=== PATIENT | female | born 1975 ===

== ENCOUNTER 2020-05-02 07:13 | Emergency (ER) | payer BC ==
[2020-05-02] MEDS ORDERED: PANTOPRAZOLE 40 MG/10 ML VIAL IVP STA (07:29)
[2020-05-02] MEDS ORDERED: SODIUM CHLORIDE 0.9% 1,000 ML IV STA (07:29)
--- NOTE | 2020-05-02 07:34 | ED ---
Abdominal Pain HPI - General Chief Complaint: Abdominal Pain Stated Complaint: GI Bleed Time Seen by Provider: 05/02/20 07:26 Source: patient, RN notes reviewed Mode of arrival: ambulatory Limitations: no limitations - History of Present Illness Initial Comments: This is a 45-year-old female history of diverticulitis in the past about obstruction kidney stones abdominal surgeries who presents with complaints of the onset 2 days ago left lower quadrant pain 8/10 in severity and also dull and achy in nature with intermittent episodes of bright red blood per rectum. He states the pain is somewhat localized left lower quadrant has gotten worse since chest today. Just feels very tired she denies any fevers chills or sweats dysuria hematuria. has had nausea with this.No other complaints or modifying factors at this time other than she is on blood thinners for a history of PE MD Complaint: abdominal pain, other - Related Data Home Medications Medication Instructions Recorded Confirmed Pantoprazole Sodium [Protonix] 40 mg PO DAILY 05/02/20 05/02/20 Rivaroxaban [Xarelto] 20 mg PO DAILY 05/02/20 05/02/20 Sertraline [Zoloft] 150 mg PO DAILY 05/02/20 05/02/20 Sucralfate [Carafate] 1 gm PO ACHS PRN 05/02/20 05/02/20 amLODIPine [Norvasc] 2.5 mg PO DAILY 05/02/20 05/02/20 Previous Rx's Medication Instructions Recorded Amoxic-Pot Clav 875-125Mg 1 tab PO Q12HR 1 Days #20 tab 05/02/20 [Augmentin 875-125] HYDROcodone/APAP 5-325MG [Pelzer 1 tab PO Q4HR PRN 3 Days #18 tab 05/02/20 5-325] Allergies Allergy/AdvReac Type Severity Reaction Status Date / Time carbamazepine [From Tegretol] Allergy Unknown Verified 05/02/20 09:29 ketorolac [From Toradol] Allergy Unknown Verified 05/02/20 09:29 lamotrigine [From Lamictal] Allergy Unknown Verified 05/02/20 09:29 prochlorperazine Allergy Unknown Verified 05/02/20 09:29 [From Compazine] Sulfa (Sulfonamide Allergy Unknown Verified 05/02/20 09:29 Antibiotics) Review of Systems ROS Statement: Those systems with pertinent positive or pertinent negative responses have been documented in the HPI. ROS Other: All systems not noted in ROS Statement are negative. Past Medical History Past Medical History: Deep Vein Thrombosis (DVT), Pulmonary Embolus (PE) Additional Past Medical History / Comment(s): endometriosis, diverticulitis, bowel obstruction, kidney stones. MTHFR mutation- high risk to develop blood clots History of Any Multi-Drug Resistant Organisms: MRSA Date of last positivie culture/infection: 2013 MDRO Source:: Bloodstream Past Surgical History: Appendectomy, Section, Cholecystectomy, Hernia Repair, Hysterectomy, Tonsillectomy Additional Past Surgical History / Comment(s): bowel obstruction surgery, brain surgery Past Psychological History: Depression Smoking Status: Never smoker Past Alcohol Use History: None Reported Past Drug Use History: None Reported General Exam - General Exam Comments Initial Comments: this is a well-developed well-nourished awake alert oriented history female Limitations: no limitations General appearance: alert, anxious Head exam: Present: atraumatic, normocephalic, normal inspection Eye exam: Present: normal appearance, PERRL, EOMI. Absent: scleral icterus, conjunctival injection, periorbital swelling ENT exam: Present: normal exam, mucous membranes moist Neck exam: Present: normal inspection. Absent: tenderness, meningismus, lymphadenopathy Respiratory exam: Present: normal lung sounds bilaterally. Absent: respiratory distress, wheezes, rales, rhonchi, stridor Cardiovascular Exam: Present: regular rate, normal rhythm, normal heart sounds. Absent: systolic murmur, diastolic murmur, rubs, gallop, clicks GI/Abdominal exam: Present: soft, tenderness, normal bowel sounds. Absent: distended, guarding, rebound, rigid, bruit, pulsatile mass Extremities exam: Present: normal inspection, full ROM, normal capillary refill. Absent: tenderness, pedal edema, joint swelling, calf tenderness Back exam: Present: normal inspection Neurological exam: Present: alert, oriented X3, CN II-XII intact Psychiatric exam: Present: normal affect, normal mood Skin exam: Present: warm, dry, intact, normal color. Absent: rash Course Vital Signs 05/02/20 05/02/20 07:16 09:16 Temperature 98.4 F 98.4 F Pulse Rate 87 79 Respiratory 16 18 Rate Blood Pressure 135/81 131/89 O2 Sat by Pulse 100 96 Oximetry Medical Decision Making - Medical Decision Making I did a long discussion with the patient regarding the findings. She is feeling better she would prefer to try outpatient antibiotics first. She will be placed on appropriate medication she is a follow-up with her doctor we did discuss return parameters. - Lab Data Result diagrams: 05/02/20 07:38 05/02/20 07:38 Lab Results 05/02/20 05/02/20 05/02/20 Range/Units 07:38 07:38 07:38 WBC 4.6 (3.8-10.6) k/uL RBC 4.86 (3.80-5.40) m/uL Hgb 12.9 (11.4-16.0) gm/dL Hct 39.8 (34.0-46.0) % MCV 81.9 (80.0-100.0) fL MCH 26.6 (25.0-35.0) pg MCHC 32.4 (31.0-37.0) g/dL RDW 13.4 (11.5-15.5) % Plt Count 154 (150-450) k/uL MPV 7.3 Neutrophils % 67 % Lymphocytes % 23 % Monocytes % 6 % Eosinophils % 2 % Basophils % 1 % Neutrophils # 3.1 (1.3-7.7) k/uL Lymphocytes # 1.0 (1.0-4.8) k/uL Monocytes # 0.3 (0-1.0) k/uL Eosinophils # 0.1 (0-0.7) k/uL Basophils # 0.0 (0-0.2) k/uL PT (9.0-12.0) sec INR (<1.2) APTT (22.0-30.0) sec Sodium 137 (137-145) mmol/L Potassium 4.1 (3.5-5.1) mmol/L Chloride 106 (98-107) mmol/L Carbon Dioxide 27 (22-30) mmol/L Anion Gap 4 mmol/L BUN 16 (7-17) mg/dL Creatinine 0.71 (0.52-1.04) mg/dL Est GFR (CKD-EPI)AfAm >90 (>60 ml/min/1.73 sqM) Est GFR (CKD-EPI)NonAf >90 (>60 ml/min/1.73 sqM) Glucose 122 H (74-99) mg/dL Calcium 8.8 (8.4-10.2) mg/dL Total Bilirubin 0.5 (0.2-1.3) mg/dL AST 21 (14-36) U/L ALT 21 (4-34) U/L Alkaline Phosphatase 86 (38-126) U/L Creatine Kinase 58 (30-135) U/L Total Protein 6.4 (6.3-8.2) g/dL Albumin 3.9 (3.5-5.0) g/dL Amylase 53 (30-110) U/L Lipase 190 (23-300) U/L Urine Color Light Yellow Urine Appearance Clear (Clear) Urine pH 5.0 (5.0-8.0) Ur Specific [place] 1.016 (1.001-1.035) Urine Protein Negative (Negative) Urine Glucose (UA) Negative (Negative) Urine Ketones Negative (Negative) Urine Blood Negative (Negative) Urine Nitrite Negative (Negative) Urine Bilirubin Negative (Negative) Urine Urobilinogen <2.0 (<2.0) mg/dL Ur Leukocyte Esterase Negative (Negative) Blood Type Blood Type Confirm Blood Type Recheck Bld Type Recheck Status Antibody Screen Spec Expiration Date 05/02/20 05/02/20 05/02/20 Range/Units 07:38 07:38 08:10 WBC (3.8-10.6) k/uL RBC (3.80-5.40) m/uL Hgb (11.4-16.0) gm/dL Hct (34.0-46.0) % MCV (80.0-100.0) fL MCH (25.0-35.0) pg MCHC (31.0-37.0) g/dL RDW (11.5-15.5) % Plt Count (150-450) k/uL MPV Neutrophils % % Lymphocytes % % Monocytes % % Eosinophils % % Basophils % % Neutrophils # (1.3-7.7) k/uL Lymphocytes # (1.0-4.8) k/uL Monocytes # (0-1.0) k/uL Eosinophils # (0-0.7) k/uL Basophils # (0-0.2) k/uL PT 10.3 (9.0-12.0) sec INR 1.0 (<1.2) APTT 22.6 (22.0-30.0) sec Sodium (137-145) mmol/L Potassium (3.5-5.1) mmol/L Chloride (98-107) mmol/L Carbon Dioxide (22-30) mmol/L Anion Gap mmol/L BUN (7-17) mg/dL Creatinine (0.52-1.04) mg/dL Est GFR (CKD-EPI)AfAm (>60 ml/min/1.73 sqM) Est GFR (CKD-EPI)NonAf (>60 ml/min/1.73 sqM) Glucose (74-99) mg/dL Calcium (8.4-10.2) mg/dL Total Bilirubin (0.2-1.3) mg/dL AST (14-36) U/L ALT (4-34) U/L Alkaline Phosphatase (38-126) U/L Creatine Kinase (30-135) U/L Total Protein (6.3-8.2) g/dL Albumin (3.5-5.0) g/dL Amylase (30-110) U/L Lipase (23-300) U/L Urine Color Urine Appearance (Clear) Urine pH (5.0-8.0) Ur Specific [place] (1.001-1.035) Urine Protein (Negative) Urine Glucose (UA) (Negative) Urine Ketones (Negative) Urine Blood (Negative) Urine Nitrite (Negative) Urine Bilirubin (Negative) Urine Urobilinogen (<2.0) mg/dL Ur Leukocyte Esterase (Negative) Blood Type A Positive Blood Type Confirm A Positive Blood Type Recheck No Previous Record Bld Type Recheck Status CABO Indicated Antibody Screen NEGATIVE Spec Expiration Date 05/05/20202337 - Radiology Data Interpreted by me: I did review the imaging and report evidence ofossibly colitis. I did a long discussion with the patient regarding this. Disposition Clinical Impression: Diverticulitis, Abdominal pain Disposition: HOME SELF-CARE Condition: Good Instructions (If sedation given, give patient instructions): Abdominal Pain (ED), Diverticulitis (ED) Prescriptions: Amoxic-Pot Clav 875-125Mg [Augmentin 875-125] 1 tab PO Q12HR 1 Days #20 tab HYDROcodone/APAP 5-325MG [Pelzer 5-325] 1 tab PO Q4HR PRN 3 Days #18 tab PRN Reason: Pain Is patient prescribed a controlled substance at d/c from ED?: No Referrals: Nonstaff,Physician [Primary Care Provider] - 1-2 days
[2020-05-02] MEDS ORDERED: HYDROmorphone 1 MG/ML 1 ML SYRINGE IVP STA (07:46)
[2020-05-02] MEDS ORDERED: ONDANSETRON 4 MG/2 ML VIAL IVP STA (07:46)
[2020-05-02 08:10] LABS: Basophils % (A) 1 %; Eosinophils # (A) 0.1 k/uL (0-0.7); Eosinophils % (A) 2 %; HCT 39.8 % (34.0-46.0); HGB 12.9 gm/dL (11.4-16.0); Lymphocytes % (A) 23 %; MCH 26.6 pg (25.0-35.0); MCHC 32.4 g/dL (31.0-37.0); MCV 81.9 fL (80.0-100.0); Mean Platelet Volume 7.3; Monocytes # (A) 0.3 k/uL (0-1.0); Monocytes % (A) 6 %; Neutrophils # (A) 3.1 k/uL (1.3-7.7); Neutrophils % (A) 67 %; Platelet Count 154 k/uL (150-450); RBC 4.86 m/uL (3.80-5.40); RDW 13.4 % (11.5-15.5); WBC 4.6 k/uL (3.8-10.6)
[2020-05-02 08:13] LABS: Appearance,Urine Clear (Clear); Bilirubin,Urine Negative (Negative); Blood,Urine Negative (Negative); Color,Urine Light Yellow; Glucose,Urine (UA) Negative (Negative); Ketones,Urine Negative (Negative); Leukocyte Esterase,Urine Negative (Negative); Nitrite,Urine Negative (Negative); Protein,Urine Negative (Negative); Specific Gravity,Urine 1.016 (1.001-1.035); Urobilinogen,Urine <2.0 mg/dL (<2.0)
[2020-05-02 08:20] LABS: ALT 21 U/L (4-34); AST 21 U/L (14-36); African American GFR (CKD) >90 (>60 ml/min/1.73 sqM); Albumin 3.9 g/dL (3.5-5.0); Alkaline Phosphatase 86 U/L (38-126); Amylase 53 U/L (30-110); Anion Gap 4 mmol/L; Blood Urea Nitrogen 16 mg/dL (7-17); Calcium 8.8 mg/dL (8.4-10.2); Carbon Dioxide 27 mmol/L (22-30); Chloride 106 mmol/L (98-107); Creatine Kinase 58 U/L (30-135); Glucose 122 mg/dL (74-99); Lipase 190 U/L (23-300); Non-African American GFR(CKD) >90 (>60 ml/min/1.73 sqM); Potassium 4.1 mmol/L (3.5-5.1); Sodium 137 mmol/L (137-145); Total Bilirubin 0.5 mg/dL (0.2-1.3); Total Protein 6.4 g/dL (6.3-8.2)
[2020-05-02 08:34] LABS: Partial Thromboplastin Time 22.6 sec (22.0-30.0); Prothrombin Time 10.3 sec (9.0-12.0)
[2020-05-02 09:17] VITALS: RESP 18
--- NOTE | 2020-05-02 09:40 | CT ---
EXAMINATION TYPE: CT abdomen pelvis w con DATE OF EXAM: 05/02/2020 COMPARISON: None HISTORY: LLQ pain with a history of diverticulitis CT DLP: 1896.3 mGycm Automated exposure control for dose reduction was used. CONTRAST: CT scan of the abdomen pelvis is performed with IV Contrast, patient injected with 100 ml mL of Isovu e 300. FINDINGS- LUNG BASES-subsegmental basilar changes nonspecific.. LIVER/GB-postcholecystectomy changes noted.. PANCREAS- No gross abnormality is seen. SPLEEN- No gross abnormality is seen. ADRENALS- No gross abnormality is seen. KIDNEYS/BLADDER- no hydronephrosis nephrolithiasis or renal mass. BOWEL-bowel gas pattern nonspecific there is very minimal induration of fat along the left colon sigm oid junction.. LYMPH NODES- No greater than 1cm abdominal or pelvic lymph nodes areappreciated. OSSEOUS STRUCTURES- No significant abnormality is seen. OTHER- aorta caliber. Correlate for previous hysterectomy. IMPRESSION- 1. Correlate very mild diverticulitis or colitis involving the junction the left colon and sigmoid co johnson is noted on axial image 63.
[2020-05-02] MEDS ORDERED: fentaNYL (PF) 50 MCG/ML 2 ML AMP IV STA (10:13)
[2020-05-02] MEDS ORDERED: cefTRIAXone IN SWFI 1,000 MG/10 ML SYRINGE IVP STA (10:13)
[2020-05-02 11:02] VITALS: BP 114/61; PULSE 68; TEMP 98.2
== END 2020-05-02 11:02 | disposition home or self-care (01) ==
LOC: EC 07:13
DX: K57.32 Diverticulitis of large intestine without perforation or abscess without bleeding (principal); F32.9 Major depressive disorder, single episode, unspecified; Z88.2 Allergy status to sulfonamides; Z88.6 Allergy status to analgesic agent; Z88.8 Allergy status to other drugs, medicaments and biological substances; Z79.899 Other long term (current) drug therapy; Z86.711 Personal history of pulmonary embolism; Z86.718 Personal history of other venous thrombosis and embolism; Z87.442 Personal history of urinary calculi; Z87.42 Personal history of other diseases of the female genital tract; Z90.49 Acquired absence of other specified parts of digestive tract; Z98.890 Other specified postprocedural states; Z86.14 Personal history of Methicillin resistant Staphylococcus aureus infection
CPT/HCPCS: 36415; 86900; 86901; 80053; 82150; 82550; 83690; 85025; 85610; 85730; 86850; 81003; 74177; 96374; 96375 ×4; 96361 ×2; 99284; J2405; J0696; J3010; J1170; C9113; Q9967

== ENCOUNTER 2020-05-02 19:29 | Emergency (ER) | payer BC ==
[2020-05-02 19:55] VITALS: TEMP 99
[2020-05-02] MEDS ORDERED: cefTRIAXone IN SWFI 1,000 MG/10 ML SYRINGE IVP STA (21:19)
[2020-05-02] MEDS ORDERED: ONDANSETRON 4 MG/2 ML VIAL IVP STA (21:19)
[2020-05-02] MEDS ORDERED: HYDROmorphone 0.5 MG/0.5 ML SYRINGE IVP STA ×2 (21:19→23:43)
[2020-05-02] MEDS ORDERED: SODIUM CHLORIDE 0.9% 1,000 ML IV STA (21:19)
[2020-05-02] MEDS ORDERED: metroNIDAZOLE-NS PMX 500 MG in SALINE 1 100ML.BAG IVPB STA (21:20)
[2020-05-02 23:02] LABS: Basophils % (A) 1 %; Eosinophils # (A) 0.2 k/uL (0-0.7); Eosinophils % (A) 5 %; HGB 12.3 gm/dL (11.4-16.0); Lymphocytes # (A) 1.2 k/uL (1.0-4.8); Lymphocytes % (A) 23 %; MCH 26.5 pg (25.0-35.0); MCHC 32.5 g/dL (31.0-37.0); MCV 81.5 fL (80.0-100.0); Mean Platelet Volume 6.9; Monocytes # (A) 0.3 k/uL (0-1.0); Monocytes % (A) 6 %; Neutrophils # (A) 3.3 k/uL (1.3-7.7); Neutrophils % (A) 64 %; Platelet Count 149 k/uL (150-450); RBC 4.66 m/uL (3.80-5.40); RDW 13.7 % (11.5-15.5); WBC 5.1 k/uL (3.8-10.6)
[2020-05-02 23:09] LABS: Appearance,Urine Clear (Clear); Bilirubin,Urine Negative (Negative); Blood,Urine Negative (Negative); Color,Urine Colorless; Glucose,Urine (UA) Negative (Negative); Ketones,Urine Negative (Negative); Leukocyte Esterase,Urine Negative (Negative); Nitrite,Urine Negative (Negative); Protein,Urine Negative (Negative); Urobilinogen,Urine <2.0 mg/dL (<2.0)
[2020-05-02 23:14] LABS: ALT 18 U/L (4-34); AST 19 U/L (14-36); African American GFR (CKD) >90 (>60 ml/min/1.73 sqM); Albumin 3.7 g/dL (3.5-5.0); Alkaline Phosphatase 76 U/L (38-126); Anion Gap 6 mmol/L; Blood Urea Nitrogen 14 mg/dL (7-17); Calcium 8.7 mg/dL (8.4-10.2); Carbon Dioxide 24 mmol/L (22-30); Chloride 107 mmol/L (98-107); Glucose 103 mg/dL (74-99); Lipase 203 U/L (23-300); Non-African American GFR(CKD) >90 (>60 ml/min/1.73 sqM); Sodium 137 mmol/L (137-145); Total Bilirubin 0.3 mg/dL (0.2-1.3); Total Protein 6.2 g/dL (6.3-8.2)
--- NOTE | 2020-05-02 23:25 | ED ---
Abdominal Pain HPI - General Chief Complaint: Abdominal Pain Stated Complaint: abd pain Time Seen by Provider: 05/02/20 19:55 Source: patient Mode of arrival: ambulatory Limitations: no limitations - History of Present Illness Initial Comments: 45-year-old female with past medical history of chronic abdominal pain, diverticulitis who presents emergency room with reported abdominal pain. She was seen in the emergency room earlier today for similar complaints. Patient had left lower quadrant pain with associated nausea and vomiting. CT was performed that demonstrated a possible diverticulitis. She states that she felt well enough to go home. Returns now stating that she went home AND the pain returned. Patient has had multiple ER visits, hospitalizations for chronic abdominal pain as well as multiple surgeries. States her surgeon is Dr. Jesse Tucker. Last surgery was 6 years ago. She denies any fevers or chills. No sick contacts. Denies hematemesis. No changes in her bowel or bladder habits. No other alleviating, precipitating or modifying factors - Related Data Home Medications Medication Instructions Recorded Confirmed Pantoprazole Sodium [Protonix] 40 mg PO DAILY 05/02/20 05/02/20 Rivaroxaban [Xarelto] 20 mg PO DAILY 05/02/20 05/02/20 Sertraline [Zoloft] 150 mg PO DAILY 05/02/20 05/02/20 Sucralfate [Carafate] 1 gm PO ACHS PRN 05/02/20 05/02/20 amLODIPine [Norvasc] 2.5 mg PO DAILY 05/02/20 05/02/20 Previous Rx's Medication Instructions Recorded Amoxic-Pot Clav 875-125Mg 1 tab PO Q12HR 1 Days #20 tab 05/02/20 [Augmentin 875-125] HYDROcodone/APAP 5-325MG [[place] 1 tab PO Q4HR PRN 3 Days #18 tab 05/02/20 5-325] Allergies Allergy/AdvReac Type Severity Reaction Status Date / Time carbamazepine [From Tegretol] Allergy Unknown Verified 05/02/20 19:54 ketorolac [From Toradol] Allergy Unknown Verified 05/02/20 19:54 lamotrigine [From Lamictal] Allergy Unknown Verified 05/02/20 19:54 prochlorperazine Allergy Unknown Verified 05/02/20 19:54 [From Compazine] Sulfa (Sulfonamide Allergy Unknown Verified 05/02/20 19:54 Antibiotics) Review of Systems ROS Statement: Those systems with pertinent positive or pertinent negative responses have been documented in the HPI. ROS Other: All systems not noted in ROS Statement are negative. Past Medical History Past Medical History: Deep Vein Thrombosis (DVT), Pulmonary Embolus (PE) Additional Past Medical History / Comment(s): endometriosis, diverticulitis, bowel obstruction, kidney stones. MTHFR mutation- high risk to develop blood clots History of Any Multi-Drug Resistant Organisms: MRSA Date of last positivie culture/infection: 2013 MDRO Source:: Bloodstream Past Surgical History: Appendectomy, Section, Cholecystectomy, Hernia Repair, Hysterectomy, Tonsillectomy Additional Past Surgical History / Comment(s): bowel obstruction surgery, brain surgery Past Psychological History: Depression Smoking Status: Never smoker Past Alcohol Use History: None Reported Past Drug Use History: None Reported General Exam Limitations: no limitations General appearance: alert, in no apparent distress Head exam: Present: atraumatic, normocephalic, normal inspection Eye exam: Present: normal appearance, PERRL, EOMI. Absent: scleral icterus, conjunctival injection, periorbital swelling ENT exam: Present: normal exam, mucous membranes moist Neck exam: Present: normal inspection. Absent: tenderness, meningismus, lymphadenopathy Respiratory exam: Present: normal lung sounds bilaterally. Absent: respiratory distress, wheezes, rales, rhonchi, stridor Cardiovascular Exam: Present: regular rate, normal rhythm, normal heart sounds. Absent: systolic murmur, diastolic murmur, rubs, gallop, clicks GI/Abdominal exam: Present: soft, tenderness (llq), normal bowel sounds. Absent: distended, guarding, rebound, rigid Extremities exam: Present: normal inspection, full ROM, normal capillary refill. Absent: tenderness, pedal edema, joint swelling, calf tenderness Back exam: Present: normal inspection Neurological exam: Present: alert, oriented X3, CN II-XII intact Psychiatric exam: Present: normal affect, normal mood Skin exam: Present: warm, dry, intact, normal color. Absent: rash Course Vital Signs 05/02/20 05/02/20 05/03/20 19:52 23:09 00:34 Temperature 99.0 F Pulse Rate 89 80 90 Respiratory 18 18 16 Rate Blood Pressure 144/84 134/78 112/68 O2 Sat by Pulse 100 98 98 Oximetry Medical Decision Making - Medical Decision Making Upon arrival patient was placed into room 6. A thorough history and physical exam was performed. Repeat laboratory studies were performed. I did review the patient's CT. As the patient's abdominal pain is a chronic issue for her and she has had multiple ER visits as well as hospitalizations, I did feel the patient was stable for discharge home at this time. Patient was given a dose of Rocephin and Flagyl. She is instructed to follow-up with her primary care doctor in 2-4 days. Patient was given 2 - 0.5 mg doses of Dilaudid. She is requesting pain medications by name. Return to the emergency room for any new or worsening symptoms. Patient was discharged home in stable condition - Lab Data Result diagrams: 05/02/20 22:55 05/02/20 22:55 Lab Results 05/02/20 05/02/20 05/02/20 Range/Units 22:55 22:55 22:55 WBC 5.1 (3.8-10.6) k/uL RBC 4.66 (3.80-5.40) m/uL Hgb 12.3 (11.4-16.0) gm/dL Hct 38.0 (34.0-46.0) % MCV 81.5 (80.0-100.0) fL MCH 26.5 (25.0-35.0) pg MCHC 32.5 (31.0-37.0) g/dL RDW 13.7 (11.5-15.5) % Plt Count 149 L (150-450) k/uL MPV 6.9 Neutrophils % 64 % Lymphocytes % 23 % Monocytes % 6 % Eosinophils % 5 % Basophils % 1 % Neutrophils # 3.3 (1.3-7.7) k/uL Lymphocytes # 1.2 (1.0-4.8) k/uL Monocytes # 0.3 (0-1.0) k/uL Eosinophils # 0.2 (0-0.7) k/uL Basophils # 0.0 (0-0.2) k/uL Sodium 137 (137-145) mmol/L Potassium 4.0 (3.5-5.1) mmol/L Chloride 107 (98-107) mmol/L Carbon Dioxide 24 (22-30) mmol/L Anion Gap 6 mmol/L BUN 14 (7-17) mg/dL Creatinine 0.66 (0.52-1.04) mg/dL Est GFR (CKD-EPI)AfAm >90 (>60 ml/min/1.73 sqM) Est GFR (CKD-EPI)NonAf >90 (>60 ml/min/1.73 sqM) Glucose 103 H (74-99) mg/dL Plasma Lactic Acid Edwin (0.7-2.0) mmol/L Calcium 8.7 (8.4-10.2) mg/dL Total Bilirubin 0.3 (0.2-1.3) mg/dL AST 19 (14-36) U/L ALT 18 (4-34) U/L Alkaline Phosphatase 76 (38-126) U/L Total Protein 6.2 L (6.3-8.2) g/dL Albumin 3.7 (3.5-5.0) g/dL Lipase 203 (23-300) U/L Urine Color Colorless Urine Appearance Clear (Clear) Urine pH 5.0 (5.0-8.0) Ur Specific [place] 1.010 (1.001-1.035) Urine Protein Negative (Negative) Urine Glucose (UA) Negative (Negative) Urine Ketones Negative (Negative) Urine Blood Negative (Negative) Urine Nitrite Negative (Negative) Urine Bilirubin Negative (Negative) Urine Urobilinogen <2.0 (<2.0) mg/dL Ur Leukocyte Esterase Negative (Negative) 05/02/20 Range/Units 22:55 WBC (3.8-10.6) k/uL RBC (3.80-5.40) m/uL Hgb (11.4-16.0) gm/dL Hct (34.0-46.0) % MCV (80.0-100.0) fL MCH (25.0-35.0) pg MCHC (31.0-37.0) g/dL RDW (11.5-15.5) % Plt Count (150-450) k/uL MPV Neutrophils % % Lymphocytes % % Monocytes % % Eosinophils % % Basophils % % Neutrophils # (1.3-7.7) k/uL Lymphocytes # (1.0-4.8) k/uL Monocytes # (0-1.0) k/uL Eosinophils # (0-0.7) k/uL Basophils # (0-0.2) k/uL Sodium (137-145) mmol/L Potassium (3.5-5.1) mmol/L Chloride (98-107) mmol/L Carbon Dioxide (22-30) mmol/L Anion Gap mmol/L BUN (7-17) mg/dL Creatinine (0.52-1.04) mg/dL Est GFR (CKD-EPI)AfAm (>60 ml/min/1.73 sqM) Est GFR (CKD-EPI)NonAf (>60 ml/min/1.73 sqM) Glucose (74-99) mg/dL Plasma Lactic Acid Edwin 0.7 (0.7-2.0) mmol/L Calcium (8.4-10.2) mg/dL Total Bilirubin (0.2-1.3) mg/dL AST (14-36) U/L ALT (4-34) U/L Alkaline Phosphatase (38-126) U/L Total Protein (6.3-8.2) g/dL Albumin (3.5-5.0) g/dL Lipase (23-300) U/L Urine Color Urine Appearance (Clear) Urine pH (5.0-8.0) Ur Specific [place] (1.001-1.035) Urine Protein (Negative) Urine Glucose (UA) (Negative) Urine Ketones (Negative) Urine Blood (Negative) Urine Nitrite (Negative) Urine Bilirubin (Negative) Urine Urobilinogen (<2.0) mg/dL Ur Leukocyte Esterase (Negative) - EKG Data EKG Comments: EKG demonstrates a normal sinus rhythm with a ventricular rate of 70. NE interval 184. QRS 76. QTC 416. No acute ST segment elevations or depressions. Disposition Clinical Impression: Abdominal pain, Diverticulitis Disposition: HOME SELF-CARE Condition: Stable Instructions (If sedation given, give patient instructions): Abdominal Pain (ED) Additional Instructions: Please follow up with your PCP in 2-4 days. Return to the ED for any new or worsening symptoms. Is patient prescribed a controlled substance at d/c from ED?: No Referrals: Mauro Early MD [Primary Care Provider] - 1-2 days Time of Disposition: 23:25
[2020-05-03 00:35] VITALS: BP 112/68; PULSE 90; RESP 16
== END 2020-05-03 00:38 | disposition home or self-care (01) ==
LOC: EC 19:29
DX: K57.92 Diverticulitis of intestine, part unspecified, without perforation or abscess without bleeding (principal); F32.9 Major depressive disorder, single episode, unspecified; Z79.899 Other long term (current) drug therapy; Z79.01 Long term (current) use of anticoagulants; Z88.8 Allergy status to other drugs, medicaments and biological substances; Z88.6 Allergy status to analgesic agent; Z88.2 Allergy status to sulfonamides; Z86.711 Personal history of pulmonary embolism; Z86.718 Personal history of other venous thrombosis and embolism; Z87.442 Personal history of urinary calculi; Z90.49 Acquired absence of other specified parts of digestive tract; Z90.89 Acquired absence of other organs; Z90.710 Acquired absence of both cervix and uterus
CPT/HCPCS: 36415; 93005; 80053; 83605; 83690; 85025; 81003; 99284; 96365; 96375 ×3; 96376; J2405; J0696; J1170

== ENCOUNTER 2020-05-07 04:30 | Observation (INO) | payer BC ==
[2020-05-07] MEDS ORDERED: MORPHINE SULFATE 4 MG/ML SYRINGE IV STA (05:33)
[2020-05-07] MEDS ORDERED: ONDANSETRON 4 MG/2 ML VIAL IVP STA (05:33)
[2020-05-07] MEDS ORDERED: ONDANSETRON ODT 4 MG TAB PO STA (06:23)
[2020-05-07] MEDS ORDERED: HYDROmorphone 1 MG/ML 1 ML SYRINGE IM STA ×2 (06:23→07:36)
--- NOTE | 2020-05-07 07:15 | ED ---
Abdominal Pain HPI - General Chief Complaint: Abdominal Pain Stated Complaint: GI bleed Time Seen by Provider: 05/07/20 04:41 Source: patient, family Mode of arrival: ambulatory Limitations: no limitations - History of Present Illness Initial Comments: This patient is a 45-year-old woman with history of previous diverticulitis. She comes today to be evaluated for worsening of left-sided abdominal pain. The patient had been seen here on May 02 when she was diagnosed with colitis versus mild diverticulitis, and she was discharged with Augmentin which she has been taking as prescribed. The patient states that her symptoms had improved until approximately yesterday afternoon when she started having worsening pain and nausea vomiting recurred. The patient also had an episode of diarrhea with some mucus. MD Complaint: abdominal pain Onset/Timin -: week(s) Location: LLQ Radiation: none Migration to: no migration Severity: moderate Quality: aching Consistency: constant Improves With: nothing Worsens With: nothing Associated Symptoms: nausea, vomiting - Related Data Home Medications Medication Instructions Recorded Confirmed Pantoprazole Sodium [Protonix] 40 mg PO DAILY 05/02/20 05/07/20 Rivaroxaban [Xarelto] 20 mg PO DAILY 05/02/20 05/07/20 Sertraline [Zoloft] 150 mg PO DAILY 05/02/20 05/07/20 Sucralfate [Carafate] 1 gm PO ACHS PRN 05/02/20 05/07/20 amLODIPine [Norvasc] 2.5 mg PO DAILY 05/02/20 05/07/20 Previous Rx's Medication Instructions Recorded HYDROcodone/APAP 5-325MG [[place] 1 tab PO Q4HR PRN 3 Days #18 tab 05/02/20 5-325] Levofloxacin [Levaquin] 750 mg PO DAILY 5 Days #1 tab 05/09/20 Ondansetron [Zofran] 4 mg PO Q8HR PRN #10 tab 05/09/20 metroNIDAZOLE [Flagyl] 500 mg PO TID 5 Days #15 tab 05/09/20 Diphenoxylate HCl/Atropine 1 tab PO 5XD PRN 3 Days #15 tab 05/11/20 [Lomotil 2.5-0.025 mg Tablet] Allergies Allergy/AdvReac Type Severity Reaction Status Date / Time carbamazepine [From Tegretol] Allergy Unknown Verified 05/11/20 00:52 ketorolac [From Toradol] Allergy Unknown Verified 05/11/20 00:52 lamotrigine [From Lamictal] Allergy Unknown Verified 05/11/20 00:52 prochlorperazine Allergy Unknown Verified 05/11/20 00:52 [From Compazine] Sulfa (Sulfonamide Allergy Unknown Verified 05/11/20 00:52 Antibiotics) Review of Systems ROS Statement: Those systems with pertinent positive or pertinent negative responses have been documented in the HPI. ROS Other: All systems not noted in ROS Statement are negative. Constitutional: Denies: fever, chills Respiratory: Denies: cough, dyspnea Cardiovascular: Denies: chest pain, palpitations, edema Gastrointestinal: Reports: abdominal pain, nausea, vomiting, diarrhea. Denies: melena, hematochezia Genitourinary: Denies: dysuria, hematuria Musculoskeletal: Denies: back pain Skin: Denies: rash Neurological: Denies: headache, weakness, numbness Past Medical History Past Medical History: Deep Vein Thrombosis (DVT), Pulmonary Embolus (PE) Additional Past Medical History / Comment(s): endometriosis, diverticulitis, bowel obstruction, kidney stones. MTHFR mutation- high risk to develop blood clots History of Any Multi-Drug Resistant Organisms: MRSA Date of last positivie culture/infection: 2013 MDRO Source:: Bloodstream Past Surgical History: Appendectomy, Section, Cholecystectomy, Hernia Repair, Hysterectomy, Tonsillectomy Additional Past Surgical History / Comment(s): bowel obstruction surgery, brain surgery Past Psychological History: Depression Smoking Status: Never smoker Past Alcohol Use History: None Reported Past Drug Use History: None Reported - Past Family History Mother Family Medical History: Vascular Disorder Additional Family Medical History / Comment(s): Brain aneurysm/blood clot to brain. Mother is . Father Family Medical History: Coronary Artery Disease (CAD), CVA/TIA, Dementia, Myocardial Infarction (CT) Additional Family Medical History / Comment(s): Father is living but not doing very well General Exam Limitations: no limitations General appearance: alert, in no apparent distress Head exam: Present: atraumatic, normocephalic Eye exam: Present: normal appearance. Absent: scleral icterus, conjunctival injection ENT exam: Present: normal oropharynx Neck exam: Present: normal inspection Respiratory exam: Present: normal lung sounds bilaterally. Absent: respiratory distress, wheezes, rales, rhonchi, stridor Cardiovascular Exam: Present: regular rate, normal rhythm, normal heart sounds. Absent: systolic murmur, diastolic murmur, rubs, gallop GI/Abdominal exam: Present: soft, tenderness, normal bowel sounds. Absent: distended, guarding, rebound, rigid, mass, pulsatile mass, hernia Extremities exam: Present: normal inspection, normal capillary refill. Absent: pedal edema, calf tenderness Back exam: Present: normal inspection. Absent: CVA tenderness (R), CVA tenderness (L) Neurological exam: Present: alert Skin exam: Present: warm, dry, intact, normal color. Absent: rash Course Vital Signs 05/07/20 05/07/20 05/07/20 04:37 07:33 09:02 Temperature 98.3 F 98.1 F Pulse Rate 87 76 71 Pulse Rate [ Right Pulse Oximetery] Respiratory 16 18 18 Rate Blood Pressure 144/99 130/75 137/79 Blood Pressure [Right Arm] O2 Sat by Pulse 97 96 96 Oximetry 05/07/20 09:13 Temperature 97.4 F L Pulse Rate Pulse Rate [ 69 Right Pulse Oximetery] Respiratory 18 Rate Blood Pressure Blood Pressure 156/91 [Right Arm] O2 Sat by Pulse 96 Oximetry Medical Decision Making - Lab Data Result diagrams: 05/07/20 08:37 05/07/20 08:37 Lab Results 05/07/20 05/07/20 05/07/20 Range/Units 06:37 06:37 08:37 WBC 4.3 (3.8-10.6) k/uL RBC 4.84 (3.80-5.40) m/uL Hgb 12.8 (11.4-16.0) gm/dL Hct 39.5 (34.0-46.0) % MCV 81.7 (80.0-100.0) fL MCH 26.4 (25.0-35.0) pg MCHC 32.3 (31.0-37.0) g/dL RDW 13.6 (11.5-15.5) % Plt Count 161 (150-450) k/uL MPV 7.3 Neutrophils % 67 % Lymphocytes % 22 % Monocytes % 4 % Eosinophils % 5 % Basophils % 0 % Neutrophils # 2.9 (1.3-7.7) k/uL Lymphocytes # 0.9 L (1.0-4.8) k/uL Monocytes # 0.2 (0-1.0) k/uL Eosinophils # 0.2 (0-0.7) k/uL Basophils # 0.0 (0-0.2) k/uL Sodium (137-145) mmol/L Potassium (3.5-5.1) mmol/L Chloride (98-107) mmol/L Carbon Dioxide (22-30) mmol/L Anion Gap mmol/L BUN (7-17) mg/dL Creatinine (0.52-1.04) mg/dL Est GFR (CKD-EPI)AfAm (>60 ml/min/1.73 sqM) Est GFR (CKD-EPI)NonAf (>60 ml/min/1.73 sqM) Glucose (74-99) mg/dL Calcium (8.4-10.2) mg/dL Total Bilirubin (0.2-1.3) mg/dL AST (14-36) U/L ALT (4-34) U/L Alkaline Phosphatase (38-126) U/L C-Reactive Protein (<10.0) mg/L Total Protein (6.3-8.2) g/dL Albumin (3.5-5.0) g/dL Globulin g/dL Albumin/Globulin Ratio Amylase (30-110) U/L Lipase (23-300) U/L Urine Color Light Yellow Urine Appearance Clear (Clear) Urine pH 5.0 (5.0-8.0) Ur Specific [place] 1.023 (1.001-1.035) Urine Protein Negative (Negative) Urine Glucose (UA) Negative (Negative) Urine Ketones Trace H (Negative) Urine Blood Negative (Negative) Urine Nitrite Negative (Negative) Urine Bilirubin Negative (Negative) Urine Urobilinogen <2.0 (<2.0) mg/dL Ur Leukocyte Esterase Negative (Negative) Urine HCG, Qual Not Detected (Not Detectd) Coronavirus (PCR) (Not Detectd) 05/07/20 05/07/20 05/07/20 Range/Units 08:37 08:37 09:03 WBC (3.8-10.6) k/uL RBC (3.80-5.40) m/uL Hgb (11.4-16.0) gm/dL Hct (34.0-46.0) % MCV (80.0-100.0) fL MCH (25.0-35.0) pg MCHC (31.0-37.0) g/dL RDW (11.5-15.5) % Plt Count (150-450) k/uL MPV Neutrophils % % Lymphocytes % % Monocytes % % Eosinophils % % Basophils % % Neutrophils # (1.3-7.7) k/uL Lymphocytes # (1.0-4.8) k/uL Monocytes # (0-1.0) k/uL Eosinophils # (0-0.7) k/uL Basophils # (0-0.2) k/uL Sodium 140 (137-145) mmol/L Potassium 4.3 (3.5-5.1) mmol/L Chloride 109 H (98-107) mmol/L Carbon Dioxide 24 (22-30) mmol/L Anion Gap 7 mmol/L BUN 13 (7-17) mg/dL Creatinine 0.54 (0.52-1.04) mg/dL Est GFR (CKD-EPI)AfAm >90 (>60 ml/min/1.73 sqM) Est GFR (CKD-EPI)NonAf >90 (>60 ml/min/1.73 sqM) Glucose 108 H (74-99) mg/dL Calcium 8.5 (8.4-10.2) mg/dL Total Bilirubin 0.5 (0.2-1.3) mg/dL AST 28 (14-36) U/L ALT 19 (4-34) U/L Alkaline Phosphatase 68 (38-126) U/L C-Reactive Protein 11.0 H (<10.0) mg/L Total Protein 6.0 L (6.3-8.2) g/dL Albumin 3.6 (3.5-5.0) g/dL Globulin 2.4 g/dL Albumin/Globulin Ratio 1.5 Amylase 38 (30-110) U/L Lipase 129 (23-300) U/L Urine Color Urine Appearance (Clear) Urine pH (5.0-8.0) Ur Specific [place] (1.001-1.035) Urine Protein (Negative) Urine Glucose (UA) (Negative) Urine Ketones (Negative) Urine Blood (Negative) Urine Nitrite (Negative) Urine Bilirubin (Negative) Urine Urobilinogen (<2.0) mg/dL Ur Leukocyte Esterase (Negative) Urine HCG, Qual (Not Detectd) Coronavirus (PCR) Not Detected (Not Detectd) Disposition Clinical Impression: Abdominal pain, Diarrhea Disposition: ADMITTED IP TO THIS HOSP Condition: Good Is patient prescribed a controlled substance at d/c from ED?: No
[2020-05-07 07:35] LABS: Appearance,Urine Clear (Clear); Bilirubin,Urine Negative (Negative); Blood,Urine Negative (Negative); Color,Urine Light Yellow; Glucose,Urine (UA) Negative (Negative); Ketones,Urine Trace (Negative); Leukocyte Esterase,Urine Negative (Negative); Nitrite,Urine Negative (Negative); Protein,Urine Negative (Negative); Specific Gravity,Urine 1.023 (1.001-1.035); Urobilinogen,Urine <2.0 mg/dL (<2.0)
[2020-05-07] MEDS ORDERED: NALOXONE 0.4 MG/ML 1 ML VIAL IV PRN (07:41)
[2020-05-07] MEDS ORDERED: metroNIDAZOLE-NS PMX 500 MG in SALINE 1 100ML.BAG IVPB STA (07:48)
[2020-05-07 08:48] LABS: Basophils % (A) 0 %; Eosinophils # (A) 0.2 k/uL (0-0.7); Eosinophils % (A) 5 %; HCT 39.5 % (34.0-46.0); HGB 12.8 gm/dL (11.4-16.0); Lymphocytes # (A) 0.9 k/uL (1.0-4.8); Lymphocytes % (A) 22 %; MCH 26.4 pg (25.0-35.0); MCHC 32.3 g/dL (31.0-37.0); MCV 81.7 fL (80.0-100.0); Mean Platelet Volume 7.3; Monocytes # (A) 0.2 k/uL (0-1.0); Monocytes % (A) 4 %; Neutrophils # (A) 2.9 k/uL (1.3-7.7); Neutrophils % (A) 67 %; Platelet Count 161 k/uL (150-450); RBC 4.84 m/uL (3.80-5.40); RDW 13.6 % (11.5-15.5); WBC 4.3 k/uL (3.8-10.6)
[2020-05-07] MEDS: SODIUM CHLORIDE 0.9% 1,000 ML IV SCH ×3 (09:47→23:22)
[2020-05-07 10:06] LABS: ALT 19 U/L (4-34); African American GFR (CKD) >90 (>60 ml/min/1.73 sqM); Albumin 3.6 g/dL (3.5-5.0); Albumin/Globulin Ratio 1.5; Anion Gap 7 mmol/L; Blood Urea Nitrogen 13 mg/dL (7-17); Calcium 8.5 mg/dL (8.4-10.2); Carbon Dioxide 24 mmol/L (22-30); Chloride 109 mmol/L (98-107); Globulin 2.4 g/dL; Glucose 108 mg/dL (74-99); Non-African American GFR(CKD) >90 (>60 ml/min/1.73 sqM); Sodium 140 mmol/L (137-145); Total Bilirubin 0.5 mg/dL (0.2-1.3)
[2020-05-07 10:07] LABS: AST 28 U/L (14-36); Alkaline Phosphatase 68 U/L (38-126); Potassium 4.3 mmol/L (3.5-5.1)
--- NOTE | 2020-05-07 10:09 | P.GSCN ---
<Lyndsay Cazares - Last Filed: 05/07/20 11:36> History of Present Illness Consult date: 05/07/20 History of present illness: CHIEF COMPLAINT: Left lower abdominal pain HISTORY OF PRESENT ILLNESS: This is a 45-year-old female with a prior history of diverticulitis, hemorrhoids, hypertension, DVT, PE, MTHFR mutation anticoagulated with Xarelto. She's had history of bowel obstructions secondary to abdominal hernia requiring hernia repair. Her last surgery was 8 years ago at [facility] for laparoscopic surgery for lysis of adhesions for another bowel obstruction. Patient also has prior history of appendectomy, cholecystectomy, hysterectomy and hernia repair. Patient presents to the ER with complaints of left lower quadrant abdominal pain. She had recently been to the ER on 05/02/2020 with similar symptoms. They did a computed tomography scan of the abdomen and pelvis that had showed to correlate for very mild diverticulitis or colitis involving the junction of the left colon and sigmoid colon. She was discharged from the ER on Augmentin. Patient states that she had been showing improvement. But over the last couple a days her symptoms have began to worsen. She was starting to have more severe left lower quadrant pain. She rated her pain about a 9 out of 10. She also reports having some rectal pain and blood in the toilet bowl water after a bowel movement. She reports that her bowel movements have been loose and has had mucus and it. She was having low-grade temps at home. She does complain of nausea. Her last colonoscopy was a year ago at [facility]. This is the patient's third episode of diverticulitis. Her first episode was several years ago. PAST MEDICAL HISTORY: See list. PAST SURGICAL HISTORY: See list. MEDICATIONS: See list. ALLERGIES: See list. SOCIAL HISTORY: No illicit drug use. REVIEW OF SYSTEMS: CONSTITUTIONAL: Denies fever or chills. HEENT: Denies blurred vision, vision changes, or eye pain. Denies hemoptysis CARDIOVASCULAR: Denies chest pain or pressure. RESPIRATORY: No shortness of breath. GASTROINTESTINAL: See HPI for pertinent findings HEMATOLOGIC: Denies bleeding disorders. GENITOURINARY: Denies any blood in urine or increased urinary frequency. SKIN: Denies pruitis. Denies rash. PHYSICAL EXAM: VITAL SIGNS: Reviewed GENERAL: Well-developed in no acute distress. HEENT: No sclera icterus. Extraocular movements grossly intact. Moist buccal mucosa. Head is atraumatic, normocephalic. No nasal drainage. ABDOMEN: Soft. Obese. Nondistended. Tenderness left lower abdomen across from the umbilicus NEUROLOGIC: Alert and oriented. Cranial nerves II through XII grossly intact. LABORATORY DATA: WBC 4.3 hemoglobin 12.8 Sodium 140 potassium 4.3 creatinine 0.54 LFTs normal CRP 11 Amylase and lipase normal UA no evidence of infection IMAGING: ASSESSMENT: 1. Left-sided abdominal pain with possible diverticulitis 2. Prior history of diverticulitis 2 3. Prior history of bowel obstructions secondary to adhesions and abdominal hernia. Patient did require lysis of adhesions and hernia repair 4. History of PE, DVT and MTHFR mutation anticoagulated with Xarelto PLAN: -Continue Levaquin and IV Flagyl -Continue IV fluids -Continue pain medication as needed -Continue antinausea medication -Further recommendations forthcoming per surgeon Thank you for this consultation Physician Supervisor Pipe Manufacture note has been reviewed by physician. Signing provider agrees with the documented findings, assessment, and plan of care. Past Medical History Past Medical History: Deep Vein Thrombosis (DVT), Hypertension, Pulmonary Embolus (PE) Additional Past Medical History / Comment(s): Pt in [facility] ER 04/30/20 with diverticulitis. Other hx; MTHFR mutation, DVTs in arms/legs and PEs bilateral lungs, abdominal hernia with bowel obstruction with surgery, pt states years ago "stomach bleed" with anemia-no surgery required but did receive transfusion, IBS, diverticulitis, nephrolithiasis-passed stones on her own, trigeminal neuralgia/facial pain-had brain surgery, endometriosis. History of Any Multi-Drug Resistant Organisms: MRSA Year Discovered:: 2013 MDRO Source:: Bloodstream Past Surgical History: Appendectomy, Section, Cholecystectomy, Hernia Repair, Hysterectomy, Tonsillectomy Additional Past Surgical History / Comment(s): Total hysterectomy, x3, abdominal hernia repair/bowel obstruction surgery, brain surgery for trigeminal neuralgia, Past Anesthesia/Blood Transfusion Reactions: No Reported Reaction Additional Past Anesthesia/Blood Transfusion Reaction / Comm: Pt has received blood in past without reaction. Smoking Status: Never smoker - Past Family History Mother Family Medical History: Vascular Disorder Additional Family Medical History / Comment(s): Brain aneurysm/blood clot to brain. Mother is . Father Family Medical History: Coronary Artery Disease (CAD), CVA/TIA, Dementia, Myocardial Infarction (CT) Additional Family Medical History / Comment(s): Father is living but not doing very well Medications and Allergies Home Medications Medication Instructions Recorded Confirmed Type Amoxic-Pot Clav 875-125Mg 1 tab PO Q12HR 1 Days #20 tab 05/02/20 05/07/20 Rx [Augmentin 875-125] HYDROcodone/APAP 5-325MG [[place] 1 tab PO Q4HR PRN 3 Days #18 tab 05/02/20 05/07/20 Rx 5-325] Pantoprazole Sodium [Protonix] 40 mg PO DAILY 05/02/20 05/07/20 History Rivaroxaban [Xarelto] 20 mg PO DAILY 05/02/20 05/07/20 History Sertraline [Zoloft] 150 mg PO DAILY 05/02/20 05/07/20 History Sucralfate [Carafate] 1 gm PO ACHS PRN 05/02/20 05/07/20 History amLODIPine [Norvasc] 2.5 mg PO DAILY 05/02/20 05/07/20 History Allergies Allergy/AdvReac Type Severity Reaction Status Date / Time carbamazepine [From Tegretol] Allergy Unknown Verified 05/07/20 06:53 ketorolac [From Toradol] Allergy Unknown Verified 05/07/20 06:53 lamotrigine [From Lamictal] Allergy Unknown Verified 05/07/20 06:53 prochlorperazine Allergy Unknown Verified 05/07/20 06:53 [From Compazine] Sulfa (Sulfonamide Allergy Unknown Verified 05/07/20 06:53 Antibiotics) Surgical - Exam Vital Signs Temp Pulse Resp BP Pulse Ox 98.3 F 87 16 144/99 97 05/07/20 04:37 05/07/20 04:37 05/07/20 04:37 05/07/20 04:37 05/07/20 04:37 Results - Labs 05/07/20 08:37 05/07/20 08:37 Abnormal Lab Results - Last 24 Hours (Table) 05/07/20 05/07/20 05/07/20 Range/Units 06:37 08:37 08:37 Lymphocytes # 0.9 L (1.0-4.8) k/uL C-Reactive Protein 11.0 H (<10.0) mg/L Urine Ketones Trace H (Negative) <[email or web address] - Last Filed: 05/07/20 11:38> History of Present Illness History of present illness: As above. Left-sided abdominal pain persists. Recent CAT scan reviewed. Minimal if any inflammation seen on that study. Continue antibiotics for possible diverticulitis. If symptoms persist or increase recommend repeating CT abdomen and pelvis. We'll follow. Surgical - Exam Vital Signs Temp Pulse Resp BP Pulse Ox 98.3 F 87 16 144/99 97 05/07/20 04:37 05/07/20 04:37 05/07/20 04:37 05/07/20 04:37 05/07/20 04:37 Results - Labs 05/07/20 08:37 05/07/20 08:37 Abnormal Lab Results - Last 24 Hours (Table) 05/07/20 05/07/20 05/07/20 Range/Units 06:37 08:37 08:37 Lymphocytes # 0.9 L (1.0-4.8) k/uL Chloride (98-107) mmol/L Glucose (74-99) mg/dL C-Reactive Protein 11.0 H (<10.0) mg/L Total Protein (6.3-8.2) g/dL Urine Ketones Trace H (Negative) 05/07/20 Range/Units 08:37 Lymphocytes # (1.0-4.8) k/uL Chloride 109 H (98-107) mmol/L Glucose 108 H (74-99) mg/dL C-Reactive Protein (<10.0) mg/L Total Protein 6.0 L (6.3-8.2) g/dL Urine Ketones (Negative) Diabetes panel 05/07/20 Range/Units 08:37 Sodium 140 (137-145) mmol/L Potassium 4.3 (3.5-5.1) mmol/L Chloride 109 H (98-107) mmol/L Carbon Dioxide 24 (22-30) mmol/L BUN 13 (7-17) mg/dL Creatinine 0.54 (0.52-1.04) mg/dL Glucose 108 H (74-99) mg/dL Calcium 8.5 (8.4-10.2) mg/dL AST 28 (14-36) U/L ALT 19 (4-34) U/L Alkaline Phosphatase 68 (38-126) U/L Total Protein 6.0 L (6.3-8.2) g/dL Albumin 3.6 (3.5-5.0) g/dL Calcium panel 05/07/20 Range/Units 08:37 Calcium 8.5 (8.4-10.2) mg/dL Albumin 3.6 (3.5-5.0) g/dL Pituitary panel 05/07/20 Range/Units 08:37 Sodium 140 (137-145) mmol/L Potassium 4.3 (3.5-5.1) mmol/L Chloride 109 H (98-107) mmol/L Carbon Dioxide 24 (22-30) mmol/L BUN 13 (7-17) mg/dL Creatinine 0.54 (0.52-1.04) mg/dL Glucose 108 H (74-99) mg/dL Calcium 8.5 (8.4-10.2) mg/dL Adrenal panel 05/07/20 Range/Units 08:37 Sodium 140 (137-145) mmol/L Potassium 4.3 (3.5-5.1) mmol/L Chloride 109 H (98-107) mmol/L Carbon Dioxide 24 (22-30) mmol/L BUN 13 (7-17) mg/dL Creatinine 0.54 (0.52-1.04) mg/dL Glucose 108 H (74-99) mg/dL Calcium 8.5 (8.4-10.2) mg/dL Total Bilirubin 0.5 (0.2-1.3) mg/dL AST 28 (14-36) U/L ALT 19 (4-34) U/L Alkaline Phosphatase 68 (38-126) U/L Total Protein 6.0 L (6.3-8.2) g/dL Albumin 3.6 (3.5-5.0) g/dL
[2020-05-07] MEDS: PANTOPRAZOLE 40 MG/10 ML VIAL IV SCH (10:28)
[2020-05-07] MEDS: LEVOFLOXACIN 750MG-D5W PMX 750 MG in DEXTROSE/WATER 1 150ML.BAG IVPB SCH (11:03)
[2020-05-07] MEDS: HYDROmorphone 1 MG/ML 1 ML SYRINGE IVP PRN ×3 (11:07→23:21)
[2020-05-07 13:44] VITALS: BMI 42.9
[2020-05-07] MEDS: ONDANSETRON 4 MG/2 ML VIAL IVP PRN (14:59)
[2020-05-07] MEDS: ACETAMINOPHEN TAB 325 MG TAB PO PRN ×2 (15:47→23:22)
[2020-05-07] MEDS: metroNIDAZOLE-NS PMX 500 MG in SALINE 1 100ML.BAG IVPB SCH (17:40)
[2020-05-07] MEDS ORDERED: SUCRALFATE 1 GM TAB PO PRN (18:42)
[2020-05-07] MEDS: HYDROmorphone 0.5 MG/0.5 ML SYRINGE IVP PRN (19:17)
[2020-05-08] MEDS: metroNIDAZOLE-NS PMX 500 MG in SALINE 1 100ML.BAG IVPB SCH ×4 (00:13→23:08)
[2020-05-08] MEDS: HYDROmorphone 0.5 MG/0.5 ML SYRINGE IVP PRN ×3 (03:59→22:03)
[2020-05-08] MEDS: HYDROmorphone 1 MG/ML 1 ML SYRINGE IVP PRN ×3 (07:40→15:42)
[2020-05-08] MEDS: ACETAMINOPHEN TAB 325 MG TAB PO PRN (07:40)
--- NOTE | 2020-05-08 09:10 | P.PN ---
Subjective Progress Note Date: 05/08/20 Principal diagnosis: Left-sided abdominal pain Patient says her pain is about the same as it was yesterday. Says it was an 8 out of 10 earlier. No nausea or vomiting. She is hungry she states. Objective - Vital Signs Vital signs: Vital Signs Temp 97.5 F L 05/08/20 07:00 Pulse 74 05/08/20 07:00 Resp 16 05/08/20 07:00 BP 131/87 05/08/20 07:00 Pulse Ox 100 05/08/20 07:00 Intake & Output 05/07/20 05/08/20 05/08/20 18:59 06:59 18:59 Weight 120.656 kg Other: Voiding Method Toilet Toilet # Voids 2 - Exam Abdomen: Soft, nondistended, mild left-sided tenderness - Labs CBC & Chem 7: 05/07/20 08:37 05/07/20 08:37 Labs: Abnormal Lab Results - Last 24 Hours (Table) 05/07/20 05/07/20 Range/Units 08:37 08:37 Chloride 109 H (98-107) mmol/L Glucose 108 H (74-99) mg/dL C-Reactive Protein 11.0 H (<10.0) mg/L Total Protein 6.0 L (6.3-8.2) g/dL Assessment and Plan (1) Abdominal pain Narrative/Plan: 45-year-old female with left-sided abdominal pain. Pain is persisting. Etiology unknown at this time. We'll order repeat CT abdomen and pelvis given the uncertainty as to the diagnosis. Current Visit: No Status: Acute Code(s): R10.9 - UNSPECIFIED ABDOMINAL PAIN SNOMED Code(s): 25070130
[2020-05-08] MEDS: IOPAMIDOL CONTRAST (ORAL USE) VIAL PO PRN ×2 (09:28→10:31)
[2020-05-08] MEDS: SERTRALINE 50 MG TAB PO SCH (09:28)
[2020-05-08] MEDS: RIVAROXABAN 20 MG TAB PO SCH (09:29)
[2020-05-08] MEDS: amLODIPine 2.5 MG TAB PO SCH (09:29)
[2020-05-08] MEDS: PANTOPRAZOLE 40 MG/10 ML VIAL IV SCH (09:29)
--- NOTE | 2020-05-08 10:10 | P.HPIM ---
History of Present Illness H&P Date: 05/07/20 Chief Complaint: Abdominal pain 45-year-old woman with history of previous diverticulitis, hypertension, DVT/PE. She comes today to be evaluated for worsening of left-sided abdominal pain. The patient had been seen here on May 02 when she was diagnosed with colitis versus mild diverticulitis, and she was discharged with Augmentin which she has been taking as prescribed. The patient states that her symptoms had improved until approximately yesterday afternoon when she started having worsening pain and nausea vomiting recurred. The patient also had an episode of diarrhea with some mucus. Workup in ED including blood work revealed a WBC of 4.3, hemoglobin 12.8, sodium 140, potassium 4.3, creatinine of 0.54, amylase and lipase are normal Patient is admitted for acute diverticulitis failing outpatient treatment Review of Systems REVIEW OF SYSTEMS: CONSTITUTIONAL: No fever, no malaise, no fatigue. HEENT: No recent visual problems or hearing problems. Denied any sore throat. CARDIOVASCULAR: No chest pain, orthopnea, PND, no palpitations, no syncope. PULMONARY: No shortness of breath, no cough, no hemoptysis. GASTROINTESTINAL: diarrhea, nausea, vomiting, abdominal pain. NEUROLOGICAL: No headaches, no weakness, no numbness. HEMATOLOGICAL: Denies any bleeding or petechiae. GENITOURINARY: Denies any burning micturition, frequency, or urgency. MUSCULOSKELETAL/RHEUMATOLOGICAL: Denies any joint pain, swelling, or any muscle pain. ENDOCRINE: Denies any polyuria or polydipsia. The rest of the 14-point review of systems is negative. Past Medical History Past Medical History: Deep Vein Thrombosis (DVT), Hypertension, Pulmonary Embolus (PE) Additional Past Medical History / Comment(s): Pt in [facility] ER 04/30/20 with d iverticulitis. Other hx; MTHFR mutation, DVTs in arms/legs and PEs bilateral lungs, abdominal hernia with bowel obstruction with surgery, pt states years ago "stomach bleed" with anemia-no surgery required but did receive transfusion, IBS, diverticulitis, nephrolithiasis-passed stones on her own, trigeminal neuralgia/facial pain-had brain surgery, endometriosis. History of Any Multi-Drug Resistant Organisms: MRSA Date of last positivie culture/infection: 2013 MDRO Source:: Bloodstream Past Surgical History: Appendectomy, Section, Cholecystectomy, Hernia Repair, Hysterectomy, Tonsillectomy Additional Past Surgical History / Comment(s): Total hysterectomy, x3, abdominal hernia repair/bowel obstruction surgery, brain surgery for trigeminal neuralgia, Past Anesthesia/Blood Transfusion Reactions: No Reported Reaction Additional Past Anesthesia/Blood Transfusion Reaction / Comment(s): Pt has re ceived blood in past without reaction. Smoking Status: Never smoker - Past Family History Mother Family Medical History: Vascular Disorder Additional Family Medical History / Comment(s): Brain aneurysm/blood clot to brain. Mother is . Father Family Medical History: Coronary Artery Disease (CAD), CVA/TIA, Dementia, Myocardial Infarction ([place]) Additional Family Medical History / Comment(s): Father is living but not doing very well Medications and Allergies Home Medications Medication Instructions Recorded Confirmed Type Amoxic-Pot Clav 875-125Mg 1 tab PO Q12HR 1 Days #20 tab 05/02/20 05/07/20 Rx [Augmentin 875-125] HYDROcodone/APAP 5-325MG [[place] 1 tab PO Q4HR PRN 3 Days #18 tab 05/02/20 05/07/20 Rx 5-325] Pantoprazole Sodium [Protonix] 40 mg PO DAILY 05/02/20 05/07/20 History Rivaroxaban [Xarelto] 20 mg PO DAILY 05/02/20 05/07/20 History Sertraline [Zoloft] 150 mg PO DAILY 05/02/20 05/07/20 History Sucralfate [Carafate] 1 gm PO ACHS PRN 05/02/20 05/07/20 History amLODIPine [Norvasc] 2.5 mg PO DAILY 05/02/20 05/07/20 History Allergies Allergy/AdvReac Type Severity Reaction Status Date / Time carbamazepine [From Tegretol] Allergy Unknown Verified 05/07/20 06:53 ketorolac [From Toradol] Allergy Unknown Verified 05/07/20 06:53 lamotrigine [From Lamictal] Allergy Unknown Verified 05/07/20 06:53 prochlorperazine Allergy Unknown Verified 05/07/20 06:53 [From Compazine] Sulfa (Sulfonamide Allergy Unknown Verified 05/07/20 06:53 Antibiotics) Physical Exam Vitals: Vital Signs Temp Pulse Pulse Resp BP BP Pulse Ox 05/07/20 09:13 97.4 F L 69 18 156/91 96 05/07/20 09:02 98.1 F 71 18 137/79 96 05/07/20 07:33 76 18 130/75 96 05/07/20 04:37 98.3 F 87 16 144/99 97 Intake and Output 05/06/20 05/07/20 05/07/20 22:59 06:59 14:59 Other: Weight 120.656 kg 120.656 kg - Constitutional General appearance: Present: average body habitus, cooperative, no acute distress - Neck Neck: Present: normal ROM. Absent: lymphadenopathy, rigidity, thyromegaly Carotids: negative: bruit present Thyroid: bilateral: normal size, negative: enlarged, nodule - Respiratory Respiratory: bilateral: CTA, negative: rales, rhonchi, wheezing - Cardiovascular Rhythm: regular Heart sounds: normal: S1, S2 Abnormal Heart Sounds: Absent: systolic murmur, diastolic murmur General gastrointestinal: Soft. Obese. Nondistended. Tenderness left lower abdomen across from the umbilicu Neurologic: Present: CNII-XII intact. Absent: focal deficitsl Musculoskeletal: Present: gait normal, strength equal bilaterally Psychiatric: Present: A&O x's 3, appropriate affect, intact judgment & insight Results CBC & Chem 7: 05/07/20 08:37 05/07/20 08:37 Labs: Abnormal Lab Results - Last 24 Hours (Table) 05/07/20 05/07/20 05/07/20 Range/Units 06:37 08:37 08:37 Lymphocytes # 0.9 L (1.0-4.8) k/uL Chloride (98-107) mmol/L Glucose (74-99) mg/dL C-Reactive Protein 11.0 H (<10.0) mg/L Total Protein (6.3-8.2) g/dL Urine Ketones Trace H (Negative) 05/07/20 Range/Units 08:37 Lymphocytes # (1.0-4.8) k/uL Chloride 109 H (98-107) mmol/L Glucose 108 H (74-99) mg/dL C-Reactive Protein (<10.0) mg/L Total Protein 6.0 L (6.3-8.2) g/dL Urine Ketones (Negative) Thrombosis Risk Factor Assmnt - Choose All That Apply Any of the Below Risk Factors Present?: Yes Each Factor Represents 1 point: Age 41-60 years, Obesity (BMI >25) Other Risk Factors: Yes Each Risk Factor Represents 3 Points: History of DVT/PE Other congenital or acquired thrombophilia - If yes, enter type in comment: No Thrombosis Risk Factor Assessment Total Risk Factor Score: 5 Thrombosis Risk Factor Assessment Level: High Risk Assessment and Plan Assessment: 1. Acute onset abdominal pain/acute diverticulitis; failing outpatient treatment - Patient is started on IV Levaquin 750 mg daily along with metronidazole 500 mg IV every 8 hours - Continue with morphine sulfate for pain control 2. Hypertension; amlodipine 2.5 mg daily 3. Prior history of bowel obstructions secondary to adhesions and abdominal hernia. Patient did require lysis of adhesions and hernia repair 4. History of PE, DVT and MTHFR mutation anticoagulated with Xarelto 5. Depression; continue with home dose of Zoloft 150 mg daily DVT prophylaxis; SCDs/systemic anticoagulation CODE STATUS; full code
[2020-05-08] MEDS: LEVOFLOXACIN 750MG-D5W PMX 750 MG in DEXTROSE/WATER 1 150ML.BAG IVPB SCH (11:30)
[2020-05-08] MEDS: SODIUM CHLORIDE 0.9% 1,000 ML IV SCH ×3 (11:40→22:45)
--- NOTE | 2020-05-08 11:58 | CT ---
EXAMINATION TYPE: CT abdomen pelvis w con DATE OF EXAM: 05/08/2020 COMPARISON: 05/02/2020 HISTORY: Lower pelvic pain, left mid abdominal pain CT DLP: 2540.4 mGycm CONTRAST: CT scan of the abdomen and pelvis is performed with Oral Contrast and with IV Contrast, patient injec joseph with 100 mL of Isovue 300. FINDINGS: LUNG BASES-: No visible nodule. Dependent atelectasis at the left lung base. LIVER/GB: No evidence for cholelithiasis. No space occupying hepatic lesion. Biliary tree is of no rmal caliber. PANCREAS: No inflammation. No distinct mass. SPLEEN: No splenic enlargement. No lesion seen. ADRENALS: No nodule. No thickening. KIDNEYS/BLADDER: No hydronephrosis. No nephrolithiasis. No distinct renal mass. Urinary bladder g rossly unremarkable. BOWEL: Poor visualization of the appendix. No inflammatory process seen within the right lower quadra nt. Normal bowel caliber. No inflammation. GENITAL ORGANS: Hysterectomy changes noted. LYMPH NODES: No greater than 1cm abdominal or pelvic lymph nodes are appreciated. AORTA: No significant abnormality. OSSEOUS STRUCTURES: No significant abnormality is seen. OTHER: Small defect anterior abdominal wall slightly to the left of midline image 31 of 97. No eviden ce for hernia. IMPRESSION: 1. No evidence for diverticulitis. Poor visualization of the appendix. 2.Small defect anterior abdominal wall
[2020-05-08] MEDS: ONDANSETRON 4 MG/2 ML VIAL IVP PRN (15:41)
[2020-05-09] MEDS: HYDROmorphone 1 MG/ML 1 ML SYRINGE IVP PRN ×2 (00:35→08:08)
[2020-05-09] MEDS: HYDROmorphone 0.5 MG/0.5 ML SYRINGE IVP PRN (02:52)
[2020-05-09] MEDS: ACETAMINOPHEN TAB 325 MG TAB PO PRN (05:21)
[2020-05-09] MEDS: SODIUM CHLORIDE 0.9% 1,000 ML IV SCH (05:22)
[2020-05-09 08:09] VITALS: BP 130/83; PULSE 65; RESP 18; TEMP 97.8
[2020-05-09] MEDS: metroNIDAZOLE-NS PMX 500 MG in SALINE 1 100ML.BAG IVPB SCH (08:09)
[2020-05-09] MEDS: SERTRALINE 50 MG TAB PO SCH (09:15)
[2020-05-09] MEDS: LEVOFLOXACIN 750MG-D5W PMX 750 MG in DEXTROSE/WATER 1 150ML.BAG IVPB SCH (09:15)
[2020-05-09] MEDS: amLODIPine 2.5 MG TAB PO SCH (09:16)
[2020-05-09] MEDS: PANTOPRAZOLE 40 MG/10 ML VIAL IV SCH (09:16)
[2020-05-09] MEDS: RIVAROXABAN 20 MG TAB PO SCH (09:16)
--- NOTE | 2020-05-09 09:35 | P.PN ---
Subjective Progress Note Date: 05/09/20 Principal diagnosis: Left-sided abdominal pain Patient complaining of diarrhea that started last night after the CAT scan. Says her pain is still 7-10 without pain medications but goes away completely with analgesics. Tolerating liquids. She is hungry for more to eat. CAT scan was reviewed. No definite source to explain the patient's discomfort. Objective - Vital Signs Vital signs: Vital Signs Temp 97.8 F 05/09/20 07:00 Pulse 65 05/09/20 07:00 Resp 18 05/09/20 07:00 BP 130/83 05/09/20 07:00 Pulse Ox 100 05/09/20 07:00 Intake & Output 05/08/20 05/09/20 05/09/20 18:59 06:59 18:59 Intake Total 1105 540 Balance 1105 540 Intake: Oral 540 Blood Product 1105 Other: Voiding Method Toilet Toilet Toilet # Voids 1 3 2 # Bowel Movements 8 3 - Exam Abdomen: Soft, mild left-sided tenderness - Labs CBC & Chem 7: 05/07/20 08:37 05/07/20 08:37 Assessment and Plan (1) Abdominal pain Narrative/Plan: Patient still having left-sided pain. Etiology unclear but no evidence of diverticulitis. Wean analgesics. Stable for discharge. Current Visit: No Status: Acute Code(s): R10.9 - UNSPECIFIED ABDOMINAL PAIN SNOMED Code(s): 18248900
[2020-05-09] MEDS ORDERED: HYDROcodone/APAP 10-325MG 1 EACH TAB PO PRN (10:59)
[2020-05-09] MEDS ORDERED: ONDANSETRON 4 MG/2 ML VIAL IVP STA (11:42)
[2020-05-09] MEDS ORDERED: HYDROmorphone 0.5 MG/0.5 ML SYRINGE IVP STA (11:42)
--- NOTE | 2020-05-15 21:10 | P.PN ---
Subjective Progress Note Date: 05/08/20 Patient says her pain is about the same as it was yesterday. Says it was an 8 out of 10 earlier. No nausea or vomiting. She is hungry she states. Continues to require IV narcotics for pain control; Sx recommending CT abdomen; further recs are pending CT results Objective - Vital Signs Vital signs: Vital Signs Temp 97.5 F L 05/08/20 07:00 Pulse 74 05/08/20 07:00 Resp 16 05/08/20 07:00 BP 131/87 05/08/20 07:00 Pulse Ox 100 05/08/20 07:00 Intake & Output 05/07/20 05/08/20 05/08/20 18:59 06:59 18:59 Weight 120.656 kg Other: Voiding Method Toilet Toilet # Voids 2 - Exam General appearance: Present: average body habitus, cooperative, no acute distr ess Neck: Present: normal ROM. Absent: lymphadenopathy, rigidity, thyromegaly Carotids: negative: bruit present Thyroid: bilateral: normal size, negative: enlarged, nodule Respiratory: bilateral: CTA, negative: rales, rhonchi, wheezing Cardiovascular; regular; normal: S1, S2 Abnormal Heart Sounds: Absent: systolic murmur, diastolic murmur General gastrointestinal: Soft. Obese. Nondistended. Tenderness left lower abdomen across from the umbilicu Neurologic: Present: CNII-XII intact. Absent: focal deficitsl Musculoskeletal: Present: gait normal, strength equal bilaterally Psychiatric: Present: A&O x's 3, appropriate affect, intact judgment & insight - Labs CBC & Chem 7: 05/07/20 08:37 05/07/20 08:37 Assessment and Plan Assessment: 1. Acute onset abdominal pain/acute diverticulitis; failing outpatient treatment - Patient is started on IV Levaquin 750 mg daily along with metronidazole 500 mg IV every 8 hours - Continue with morphine sulfate for pain control 2. Hypertension; amlodipine 2.5 mg daily 3. Prior history of bowel obstructions secondary to adhesions and abdominal hernia. Patient did require lysis of adhesions and hernia repair 4. History of PE, DVT and MTHFR mutation anticoagulated with Xarelto 5. Depression; continue with home dose of Zoloft 150 mg daily DVT prophylaxis; SCDs/systemic anticoagulation CODE STATUS; full code
--- NOTE | 2020-05-15 21:12 | P.DS ---
Providers Date of admission: 05/08/20 10:36 Expected date of discharge: 05/09/20 Attending physician: Ashleigh Hunt MD Consults: 05/07/20 07:42 Consult Physician Routine Consulting Provider: Yasir Deluna Consult Reason/Comments: abdominal pain. diverticulitis Do you want consulting provider notified?: Yes Primary care physician: Mauro Early MD Hospital Course: 45-year-old woman with history of previous diverticulitis, hypertension, DVT/PE. She comes today to be evaluated for worsening of left-sided abdominal pain. The patient had been seen here on May 02 when she was diagnosed with colitis versus mild diverticulitis, and she was discharged with Augmentin which she has been taking as prescribed. The patient states that her symptoms had improved until approximately yesterday afternoon when she started having worsening pain and nausea vomiting recurred. The patient also had an episode of diarrhea with some mucus. Workup in ED including blood work revealed a WBC of 4.3, hemoglobin 12.8, sodium 140, potassium 4.3, creatinine of 0.54, amylase and lipase are normal Patient is admitted for acute diverticulitis failing outpatient treatment Patient says her pain is about the same as it was yesterday. Says it was an 8 out of 10 earlier. No nausea or vomiting. She is hungry she states. Continues to require IV narcotics for pain control; Sx recommending CT abdomen; further recs are pending CT results Ct of Abdomen was unremarkable; patient is cleared for dc by surgery Patient Condition at Discharge: Good Plan - Discharge Summary Discharge Rx Participant: No New Discharge Prescriptions: New Levofloxacin [Levaquin] 750 mg PO DAILY 5 Days #1 tab Ondansetron [Zofran] 4 mg PO Q8HR PRN #10 tab PRN Reason: Nausea metroNIDAZOLE [Flagyl] 500 mg PO TID 5 Days #15 tab Continue Sucralfate [Carafate] 1 gm PO ACHS PRN PRN Reason: Gi Upset Sertraline [Zoloft] 150 mg PO DAILY Rivaroxaban [Xarelto] 20 mg PO DAILY amLODIPine [Norvasc] 2.5 mg PO DAILY Pantoprazole Sodium [Protonix] 40 mg PO DAILY HYDROcodone/APAP 5-325MG [[place] 5-325] 1 tab PO Q4HR PRN 3 Days #18 tab PRN Reason: Pain Discontinued Amoxic-Pot Clav 875-125Mg [Augmentin 875-125] 1 tab PO Q12HR 1 Days #20 tab No Action Diphenoxylate HCl/Atropine [Lomotil 2.5-0.025 mg Tablet] 1 tab PO 5XD PRN 3 Days #15 tab PRN Reason: Diarrhea Discharge Medication List HYDROcodone/APAP 5-325MG [[place] 5-325] 1 tab PO Q4HR PRN 3 Days #18 tab 05/02/20 [Rx] Pantoprazole Sodium [Protonix] 40 mg PO DAILY 05/02/20 [History] Rivaroxaban [Xarelto] 20 mg PO DAILY 05/02/20 [History] Sertraline [Zoloft] 150 mg PO DAILY 05/02/20 [History] Sucralfate [Carafate] 1 gm PO ACHS PRN 05/02/20 [History] amLODIPine [Norvasc] 2.5 mg PO DAILY 05/02/20 [History] Levofloxacin [Levaquin] 750 mg PO DAILY 5 Days #1 tab 05/09/20 [Rx] Ondansetron [Zofran] 4 mg PO Q8HR PRN #10 tab 05/09/20 [Rx] metroNIDAZOLE [Flagyl] 500 mg PO TID 5 Days #15 tab 05/09/20 [Rx] Diphenoxylate HCl/Atropine [Lomotil 2.5-0.025 mg Tablet] 1 tab PO 5XD PRN 3 Days #15 tab 05/11/20 [Rx] Follow up Appointment(s)/Referral(s): Mauro Early MD [Primary Care Provider] - 1-2 days Discharge Disposition: HOME SELF-CARE
== END 2020-05-09 13:38 | disposition home or self-care (01) ==
LOC: EC 04:30 → 6NMEDSUR 07:41 → OBSVTOIN 05-08 10:36 → INTOOBSV 05-08 10:36 → 6PED 05-09 08:22 → UNDODISIN 05-09 13:38
PROVIDERS: ADMIT Internal Medicine; ATTEND Internal Medicine
DX: K57.92 Diverticulitis of intestine, part unspecified, without perforation or abscess without bleeding (principal); I10 Essential (primary) hypertension; F32.9 Major depressive disorder, single episode, unspecified; E72.12 Methylenetetrahydrofolate reductase deficiency; E66.9 Obesity, unspecified; Z68.41 Body mass index [BMI] 40.0-44.9, adult; Z79.01 Long term (current) use of anticoagulants; K58.9 Irritable bowel syndrome, unspecified; Z90.89 Acquired absence of other organs; Z79.899 Other long term (current) drug therapy; Z79.891 Long term (current) use of opiate analgesic; Z90.710 Acquired absence of both cervix and uterus; Z20.822 Contact with and (suspected) exposure to COVID-19; Z88.8 Allergy status to other drugs, medicaments and biological substances; Z88.2 Allergy status to sulfonamides; Z87.442 Personal history of urinary calculi; Z87.19 Personal history of other diseases of the digestive system; Z86.718 Personal history of other venous thrombosis and embolism; Z86.711 Personal history of pulmonary embolism; Z86.14 Personal history of Methicillin resistant Staphylococcus aureus infection; Z90.49 Acquired absence of other specified parts of digestive tract; Z82.49 Family history of ischemic heart disease and other diseases of the circulatory system; Z81.8 Family history of other mental and behavioral disorders; Z82.3 Family history of stroke
CPT/HCPCS: 96376 ×3; 96361 ×3; 96365; 96366 ×3; 96367; 96375; 96372; 99284; 80053; 82150; 83690; 85025; 86140; 81003; 81025; 87324; 87635; 74177; G0378 ×4; J2405 ×3; J1170 ×6; J1956 ×3; C9113 ×3; Q9967

== ENCOUNTER 2020-05-11 00:45 | Emergency (ER) | payer BC ==
[2020-05-11] MEDS ORDERED: MORPHINE SULFATE 2 MG/ML SYRINGE IVP STA ×2 (01:39→03:21)
[2020-05-11] MEDS ORDERED: SODIUM CHLORIDE 0.9% 1,000 ML IV STA (01:39)
[2020-05-11] MEDS ORDERED: ONDANSETRON 4 MG/2 ML VIAL IVP STA (01:39)
[2020-05-11 02:30] LABS: Appearance,Urine Cloudy (Clear); Bilirubin,Urine Negative (Negative); Blood,Urine Negative (Negative); Calcium Oxalate Crystals,Urine Occasional /hpf; Color,Urine Yellow; Glucose,Urine (UA) Negative (Negative); Ketones,Urine Negative (Negative); Leukocyte Esterase,Urine Moderate (Negative); Mucus,Urine Few /hpf; Nitrite,Urine Negative (Negative); PH, Urine 5.5 (5.0-8.0); Protein,Urine Negative (Negative); Specific Gravity,Urine 1.021 (1.001-1.035); Squamous Epithelial Cell,Urine 5 /hpf (0-4); Urobilinogen,Urine <2.0 mg/dL (<2.0); WBC,Urine 4 /hpf (0-5)
[2020-05-11 02:42] LABS: Basophils % (A) 0 %; Eosinophils # (A) 0.2 k/uL (0-0.7); Eosinophils % (A) 3 %; HCT 39.3 % (34.0-46.0); HGB 13.4 gm/dL (11.4-16.0); Lymphocytes # (A) 1.1 k/uL (1.0-4.8); Lymphocytes % (A) 19 %; MCH 27.7 pg (25.0-35.0); MCHC 34.1 g/dL (31.0-37.0); MCV 81.2 fL (80.0-100.0); Mean Platelet Volume 6.9; Monocytes # (A) 0.2 k/uL (0-1.0); Monocytes % (A) 4 %; Neutrophils % (A) 71 %; Platelet Count 148 k/uL (150-450); RBC 4.83 m/uL (3.80-5.40); RDW 13.8 % (11.5-15.5); WBC 5.7 k/uL (3.8-10.6)
[2020-05-11 02:56] LABS: ALT 21 U/L (4-34); AST 31 U/L (14-36); African American GFR (CKD) >90 (>60 ml/min/1.73 sqM); Alkaline Phosphatase 77 U/L (38-126); Anion Gap 6 mmol/L; Blood Urea Nitrogen 13 mg/dL (7-17); Carbon Dioxide 27 mmol/L (22-30); Chloride 107 mmol/L (98-107); Glucose 121 mg/dL (74-99); Lipase 153 U/L (23-300); Non-African American GFR(CKD) >90 (>60 ml/min/1.73 sqM); Potassium 3.5 mmol/L (3.5-5.1); Sodium 140 mmol/L (137-145); Total Bilirubin 0.4 mg/dL (0.2-1.3); Total Protein 6.3 g/dL (6.3-8.2)
--- NOTE | 2020-05-11 03:04 | ED ---
General Adult HPI - General Chief complaint: Abdominal Pain Stated complaint: ABD pain Time Seen by Provider: 05/11/20 01:25 Source: patient Mode of arrival: ambulatory Limitations: no limitations - History of Present Illness Initial comments: 45-year-old female patient with past medical history significant for diverticulitis and chronic abdominal pain presents to the emergency department today for evaluation of increased left lower quadrant pain, diarrhea, and nausea. Patient states she was discharged from the hospital on May 09 after being admitted for diverticulitis. States she was discharged home with pain medication, Levaquin, and Flagyl. States she's been taking the medications but symptoms returned today. Denies any known fever, but states she has been chilled. She has had multiple abdominal surgeries in the past. States she is urinating without difficulty. She denies any hematochezia or melena. States she's had several episodes of diarrhea throughout the day and has been taking Imodium. Patient denies any recent rash, cough, shortness of breath, chest pain, back pain, numbness, tingling, dizziness, weakness, headache, visual changes, or any other complaints. - Related Data Home Medications Medication Instructions Recorded Confirmed Pantoprazole Sodium [Protonix] 40 mg PO DAILY 05/02/20 05/07/20 Rivaroxaban [Xarelto] 20 mg PO DAILY 05/02/20 05/07/20 Sertraline [Zoloft] 150 mg PO DAILY 05/02/20 05/07/20 Sucralfate [Carafate] 1 gm PO ACHS PRN 05/02/20 05/07/20 amLODIPine [Norvasc] 2.5 mg PO DAILY 05/02/20 05/07/20 Previous Rx's Medication Instructions Recorded HYDROcodone/APAP 5-325MG [[place] 1 tab PO Q4HR PRN 3 Days #18 tab 05/02/20 5-325] Levofloxacin [Levaquin] 750 mg PO DAILY 5 Days #1 tab 05/09/20 Ondansetron [Zofran] 4 mg PO Q8HR PRN #10 tab 05/09/20 metroNIDAZOLE [Flagyl] 500 mg PO TID 5 Days #15 tab 05/09/20 Diphenoxylate HCl/Atropine 1 tab PO 5XD PRN 3 Days #15 tab 05/11/20 [Lomotil 2.5-0.025 mg Tablet] Allergies Allergy/AdvReac Type Severity Reaction Status Date / Time carbamazepine [From Tegretol] Allergy Unknown Verified 05/11/20 00:52 ketorolac [From Toradol] Allergy Unknown Verified 05/11/20 00:52 lamotrigine [From Lamictal] Allergy Unknown Verified 05/11/20 00:52 prochlorperazine Allergy Unknown Verified 05/11/20 00:52 [From Compazine] Sulfa (Sulfonamide Allergy Unknown Verified 05/11/20 00:52 Antibiotics) Review of Systems ROS Statement: Those systems with pertinent positive or pertinent negative responses have been documented in the HPI. ROS Other: All systems not noted in ROS Statement are negative. Past Medical History Past Medical History: Deep Vein Thrombosis (DVT), Hypertension, Pulmonary Embolus (PE) Additional Past Medical History / Comment(s): Pt in [facility] ER 04/30/20 with divert iculitis. Other hx; MTHFR mutation, DVTs in arms/legs and PEs bilateral lungs, abdominal hernia with bowel obstruction with surgery, pt states years ago "stomach bleed" with anemia-no surgery required but did receive transfusion, IBS, diverticulitis, nephrolithiasis-passed stones on her own, trigeminal neuralgia/facial pain-had brain surgery, endometriosis. History of Any Multi-Drug Resistant Organisms: MRSA Date of last positivie culture/infection: 2013 MDRO Source:: Bloodstream Past Surgical History: Appendectomy, Section, Cholecystectomy, Hernia Repair, Hysterectomy, Tonsillectomy Additional Past Surgical History / Comment(s): Total hysterectomy, x3, abdominal hernia repair/bowel obstruction surgery, brain surgery for trigeminal neuralgia, Past Anesthesia/Blood Transfusion Reactions: No Reported Reaction Additional Past Anesthesia/Blood Transfusion Reaction / Comment(s): Pt has received blood in past without reaction. Past Psychological History: Depression Smoking Status: Never smoker - Past Family History Mother Family Medical History: Vascular Disorder Additional Family Medical History / Comment(s): Brain aneurysm/blood clot to brain. Mother is . Father Family Medical History: Coronary Artery Disease (CAD), CVA/TIA, Dementia, Myocardial Infarction ([place]) Additional Family Medical History / Comment(s): Father is living but not doing very well General Exam Limitations: no limitations General appearance: alert, in no apparent distress, other (Physical well- developed, well-nourished adult female patient in no acute distress. Vital signs upon presentation are temperature 98.6F, pulse 83, respirations 18, blood pressure 169/94, pulse ox 97% on room air.) ENT exam: Present: normal exam, normal oropharynx, mucous membranes moist Respiratory exam: Present: normal lung sounds bilaterally. Absent: respiratory distress, wheezes, rales, rhonchi, stridor Cardiovascular Exam: Present: regular rate, normal rhythm, normal heart sounds. Absent: systolic murmur, diastolic murmur, rubs, gallop, clicks GI/Abdominal exam: Present: soft, tenderness (Left midabdomen), normal bowel sounds. Absent: distended, guarding, rebound, rigid Neurological exam: Present: alert, oriented X3, CN II-XII intact Psychiatric exam: Present: normal affect, normal mood Skin exam: Present: warm, dry, intact, normal color. Absent: rash Course Vital Signs 05/11/20 00:47 Temperature 98.6 F Pulse Rate 83 Respiratory 18 Rate Blood Pressure 169/94 O2 Sat by Pulse 97 Oximetry Medical Decision Making - Medical Decision Making 45-year-old female patient presents to the emergency department today for evaluation of left lower quadrant abdominal pain and diarrhea. Physical examination did reveal some tenderness over the left mid abdomen. Labs reviewed and revealed normal white blood cell count. No ketones in the urine and injury. No signs of dehydration. Patient is currently taking Levaquin and Flagyl after being discharged from the hospital yesterday. He did review computed tomography scan which showed no evidence for infection. She will be discharged home to follow-up with her primary care physician for recheck in 1-2 days. Return parameters were discussed in detail. She verbalizes understanding and agrees with this plan. Case discussed with my attending Dr. Felipe. - Lab Data Result diagrams: 05/11/20 02:38 05/11/20 02:38 Lab Results 05/11/20 05/11/20 05/11/20 Range/Units 02:20 02:38 02:38 WBC 5.7 (3.8-10.6) k/uL RBC 4.83 (3.80-5.40) m/uL Hgb 13.4 (11.4-16.0) gm/dL Hct 39.3 (34.0-46.0) % MCV 81.2 (80.0-100.0) fL MCH 27.7 (25.0-35.0) pg MCHC 34.1 (31.0-37.0) g/dL RDW 13.8 (11.5-15.5) % Plt Count 148 L (150-450) k/uL MPV 6.9 Neutrophils % 71 % Lymphocytes % 19 % Monocytes % 4 % Eosinophils % 3 % Basophils % 0 % Neutrophils # 4.0 (1.3-7.7) k/uL Lymphocytes # 1.1 (1.0-4.8) k/uL Monocytes # 0.2 (0-1.0) k/uL Eosinophils # 0.2 (0-0.7) k/uL Basophils # 0.0 (0-0.2) k/uL Sodium 140 (137-145) mmol/L Potassium 3.5 (3.5-5.1) mmol/L Chloride 107 (98-107) mmol/L Carbon Dioxide 27 (22-30) mmol/L Anion Gap 6 mmol/L BUN 13 (7-17) mg/dL Creatinine 0.66 (0.52-1.04) mg/dL Est GFR (CKD-EPI)AfAm >90 (>60 ml/min/1.73 sqM) Est GFR (CKD-EPI)NonAf >90 (>60 ml/min/1.73 sqM) Glucose 121 H (74-99) mg/dL Plasma Lactic Acid Edwin (0.7-2.0) mmol/L Calcium 9.0 (8.4-10.2) mg/dL Total Bilirubin 0.4 (0.2-1.3) mg/dL AST 31 (14-36) U/L ALT 21 (4-34) U/L Alkaline Phosphatase 77 (38-126) U/L Total Protein 6.3 (6.3-8.2) g/dL Albumin 4.0 (3.5-5.0) g/dL Lipase 153 (23-300) U/L Urine Color Yellow Urine Appearance Cloudy H (Clear) Urine pH 5.5 (5.0-8.0) Ur Specific [place] 1.021 (1.001-1.035) Urine Protein Negative (Negative) Urine Glucose (UA) Negative (Negative) Urine Ketones Negative (Negative) Urine Blood Negative (Negative) Urine Nitrite Negative (Negative) Urine Bilirubin Negative (Negative) Urine Urobilinogen <2.0 (<2.0) mg/dL Ur Leukocyte Esterase Moderate H (Negative) Urine WBC 4 (0-5) /hpf Ur Squamous Epith Cells 5 H (0-4) /hpf Calcium Oxalate Crystal Occasional H (None) /hpf Urine Mucus Few H (None) /hpf 05/11/20 Range/Units 02:38 WBC (3.8-10.6) k/uL RBC (3.80-5.40) m/uL Hgb (11.4-16.0) gm/dL Hct (34.0-46.0) % MCV (80.0-100.0) fL MCH (25.0-35.0) pg MCHC (31.0-37.0) g/dL RDW (11.5-15.5) % Plt Count (150-450) k/uL MPV Neutrophils % % Lymphocytes % % Monocytes % % Eosinophils % % Basophils % % Neutrophils # (1.3-7.7) k/uL Lymphocytes # (1.0-4.8) k/uL Monocytes # (0-1.0) k/uL Eosinophils # (0-0.7) k/uL Basophils # (0-0.2) k/uL Sodium (137-145) mmol/L Potassium (3.5-5.1) mmol/L Chloride (98-107) mmol/L Carbon Dioxide (22-30) mmol/L Anion Gap mmol/L BUN (7-17) mg/dL Creatinine (0.52-1.04) mg/dL Est GFR (CKD-EPI)AfAm (>60 ml/min/1.73 sqM) Est GFR (CKD-EPI)NonAf (>60 ml/min/1.73 sqM) Glucose (74-99) mg/dL Plasma Lactic Acid Edwin 0.8 (0.7-2.0) mmol/L Calcium (8.4-10.2) mg/dL Total Bilirubin (0.2-1.3) mg/dL AST (14-36) U/L ALT (4-34) U/L Alkaline Phosphatase (38-126) U/L Total Protein (6.3-8.2) g/dL Albumin (3.5-5.0) g/dL Lipase (23-300) U/L Urine Color Urine Appearance (Clear) Urine pH (5.0-8.0) Ur Specific [place] (1.001-1.035) Urine Protein (Negative) Urine Glucose (UA) (Negative) Urine Ketones (Negative) Urine Blood (Negative) Urine Nitrite (Negative) Urine Bilirubin (Negative) Urine Urobilinogen (<2.0) mg/dL Ur Leukocyte Esterase (Negative) Urine WBC (0-5) /hpf Ur Squamous Epith Cells (0-4) /hpf Calcium Oxalate Crystal (None) /hpf Urine Mucus (None) /hpf Disposition Clinical Impression: Abdominal pain, Diarrhea Disposition: HOME SELF-CARE Condition: Good Instructions (If sedation given, give patient instructions): Acute Diarrhea (ED), Abdominal Pain (ED) Additional Instructions: Take medications as directed. Follow up with her primary care physician and surgeon for further evaluation as soon as possible. Return to the emergency department for any new, worsening, or concerning symptoms. Prescriptions: Diphenoxylate HCl/Atropine [Lomotil 2.5-0.025 mg Tablet] 1 tab PO 5XD PRN 3 Days #15 tab PRN Reason: Diarrhea Is patient prescribed a controlled substance at d/c from ED?: No Referrals: None,Stated [Primary Care Provider] - 1-2 days Time of Disposition: 03:20
[2020-05-11 03:41] VITALS: BP 145/93; PULSE 80; RESP 16; TEMP 98
== END 2020-05-11 03:43 | disposition home or self-care (01) ==
LOC: EC 00:45
DX: R10.32 Left lower quadrant pain (principal); R19.7 Diarrhea, unspecified; R11.0 Nausea; K58.9 Irritable bowel syndrome, unspecified; F32.9 Major depressive disorder, single episode, unspecified; I10 Essential (primary) hypertension; Z79.01 Long term (current) use of anticoagulants; Z79.899 Other long term (current) drug therapy; Z88.2 Allergy status to sulfonamides; Z88.6 Allergy status to analgesic agent; Z88.8 Allergy status to other drugs, medicaments and biological substances; Z87.19 Personal history of other diseases of the digestive system; Z87.442 Personal history of urinary calculi; Z86.711 Personal history of pulmonary embolism; Z86.718 Personal history of other venous thrombosis and embolism; Z90.49 Acquired absence of other specified parts of digestive tract; Z98.890 Other specified postprocedural states
CPT/HCPCS: 36415; 80053; 83605; 83690; 85025; 81001; 99284; 96374; 96375; 96376; 96361; J2405; J2270

== ENCOUNTER 2020-05-23 07:07 | Emergency (ER) | payer BC ==
[2020-05-23 07:16] VITALS: RESP 18; TEMP 98
[2020-05-23] MEDS ORDERED: SODIUM CHLORIDE 0.9% 1,000 ML IV STA (07:32)
[2020-05-23] MEDS ORDERED: HYDROmorphone 0.5 MG/0.5 ML SYRINGE IVP STA (07:32)
--- NOTE | 2020-05-23 07:37 | ED ---
General Adult HPI - General Chief complaint: Abdominal Pain Stated complaint: Stomach Pain,Nausea Time Seen by Provider: 05/23/20 07:07 Source: patient, RN notes reviewed, old records reviewed Mode of arrival: ambulatory Limitations: no limitations - History of Present Illness Initial comments: This is a 45-year-old female who has past medical history significant for cholecystectomy appendectomy and ventral hernia repair as well as removal of adhesions for bowel obstruction. Patient has been to the emergency department for previous times for abdominal pain the last 3 weeks. Patient comes in today because at 2 AM she started having epigastric abdominal pain with associated nausea and vomited 2. Patient states she still having bowel movements and passing gas. Patient denies any fever chills per patient denies any chest pain difficult breathing shortness of breath per patient denies any radiation to the back. Patient has had 2 previous CAT scans in the last 3 weeks of her abdomen and pelvis. - Related Data Home Medications Medication Instructions Recorded Confirmed Pantoprazole Sodium [Protonix] 40 mg PO DAILY 05/02/20 05/07/20 Rivaroxaban [Xarelto] 20 mg PO DAILY 05/02/20 05/07/20 Sertraline [Zoloft] 150 mg PO DAILY 05/02/20 05/07/20 Sucralfate [Carafate] 1 gm PO ACHS PRN 05/02/20 05/07/20 amLODIPine [Norvasc] 2.5 mg PO DAILY 05/02/20 05/07/20 Previous Rx's Medication Instructions Recorded HYDROcodone/APAP 5-325MG [[place] 1 tab PO Q4HR PRN 3 Days #18 tab 05/02/20 5-325] Levofloxacin [Levaquin] 750 mg PO DAILY 5 Days #1 tab 05/09/20 Ondansetron [Zofran] 4 mg PO Q8HR PRN #10 tab 05/09/20 metroNIDAZOLE [Flagyl] 500 mg PO TID 5 Days #15 tab 05/09/20 Diphenoxylate HCl/Atropine 1 tab PO 5XD PRN 3 Days #15 tab 05/11/20 [Lomotil 2.5-0.025 mg Tablet] Allergies Allergy/AdvReac Type Severity Reaction Status Date / Time carbamazepine [From Tegretol] Allergy Unknown Verified 05/23/20 07:12 ketorolac [From Toradol] Allergy Unknown Verified 05/23/20 07:12 lamotrigine [From Lamictal] Allergy Unknown Verified 05/23/20 07:12 prochlorperazine Allergy Unknown Verified 05/23/20 07:12 [From Compazine] Sulfa (Sulfonamide Allergy Unknown Verified 05/23/20 07:12 Antibiotics) Review of Systems ROS Statement: Those systems with pertinent positive or pertinent negative responses have been documented in the HPI. ROS Other: All systems not noted in ROS Statement are negative. Past Medical History Past Medical History: Deep Vein Thrombosis (DVT), Hypertension, Pulmonary Embol us (PE) Additional Past Medical History / Comment(s): Pt in [facility] ER 04/30/20 with diverticulitis. Other hx; MTHFR mutation, DVTs in arms/legs and PEs bilateral lungs, abdominal hernia with bowel obstruction with surgery, pt states years ago "stomach bleed" with anemia-no surgery required but did receive transfusion, IBS, diverticulitis, nephrolithiasis-passed stones on her own, trigeminal neuralgia/facial pain-had brain surgery, endometriosis. History of Any Multi-Drug Resistant Organisms: MRSA Date of last positivie culture/infection: 2013 MDRO Source:: Bloodstream Past Surgical History: Section, Hernia Repair, Hysterectomy Additional Past Surgical History / Comment(s): Total hysterectomy, x3, abdominal hernia repair/bowel obstruction surgery, brain surgery for trigeminal neuralgia, Past Anesthesia/Blood Transfusion Reactions: No Reported Reaction Additional Past Anesthesia/Blood Transfusion Reaction / Comment(s): Pt has received blood in past without reaction. Past Psychological History: Depression Smoking Status: Never smoker Past Alcohol Use History: None Reported Past Drug Use History: None Reported - Past Family History Mother Family Medical History: Vascular Disorder Additional Family Medical History / Comment(s): Brain aneurysm/blood clot to brain. Mother is . Father Family Medical History: Coronary Artery Disease (CAD), CVA/TIA, Dementia, Myocardial Infarction ([place]) Additional Family Medical History / Comment(s): Father is living but not doing very well General Exam - General Exam Comments Initial Comments: GENERAL: Patient is well-developed and well-nourished. Patient is nontoxic and well- hydrated and is in mild distress. ENT: Neck is soft and supple. No significant lymphadenopathy is noted. Oropharynx is clear. Moist mucous membranes. Neck has full range of motion without eliciting any pain. EYES: The sclera were anicteric and conjunctiva were pink and moist. Extraocular movements were intact and pupils were equal round and reactive to light. Eyelids were unremarkable. PULMONARY: Unlabored respirations. Good breath sounds bilaterally. No audible rales rhonchi or wheezing was noted. CARDIOVASCULAR: There is a regular rate and rhythm without any murmurs gallops or rubs. ABDOMEN: Very minimal epigastric abdominal pain no rebound or guarding. No organomegaly. SKIN: Skin is clear with no lesions or rashes and otherwise unremarkable. NEUROLOGIC: Patient is alert and oriented x3. Cranial nerves II through XII are grossly intact. Motor and sensory are also intact. Normal speech, volume and content. Symmetrical smile. MUSCULOSKELETAL: Normal extremities with adequate strength and full range of motion. No lower extremity swelling or edema. No calf tenderness. LYMPHATICS: No significant lymphadenopathy is noted PSYCHIATRIC: Normal psychiatric evaluation. Limitations: no limitations Course Vital Signs 05/23/20 07:12 Temperature 98 F Pulse Rate 81 Respiratory 18 Rate Blood Pressure 140/86 O2 Sat by Pulse 100 Oximetry Medical Decision Making - Medical Decision Making KUB shows no acute abnormality. I will back and the patient was sleeping and when I awoke her she stated she was feeling better. Patient has had 8 visits between our hospital [facility] in the last 30 days patient also sent to CAT scan to the abdomen and pelvis. Patient has yet to follow up after one visits with her primary medical care doctor - Lab Data Result diagrams: 05/23/20 07:45 05/23/20 07:45 Lab Results 05/23/20 05/23/20 05/23/20 Range/Units 07:45 07:45 07:58 WBC 3.7 L (3.8-10.6) k/uL RBC 5.11 (3.80-5.40) m/uL Hgb 13.4 (11.4-16.0) gm/dL Hct 41.2 (34.0-46.0) % MCV 80.7 (80.0-100.0) fL MCH 26.3 (25.0-35.0) pg MCHC 32.6 (31.0-37.0) g/dL RDW 13.6 (11.5-15.5) % Plt Count 172 (150-450) k/uL MPV 7.1 Neutrophils % 67 % Lymphocytes % 23 % Monocytes % 5 % Eosinophils % 2 % Basophils % 0 % Neutrophils # 2.5 (1.3-7.7) k/uL Lymphocytes # 0.9 L (1.0-4.8) k/uL Monocytes # 0.2 (0-1.0) k/uL Eosinophils # 0.1 (0-0.7) k/uL Basophils # 0.0 (0-0.2) k/uL Sodium 140 (137-145) mmol/L Potassium 4.4 (3.5-5.1) mmol/L Chloride 106 (98-107) mmol/L Carbon Dioxide 25 (22-30) mmol/L Anion Gap 9 mmol/L BUN 17 (7-17) mg/dL Creatinine 0.62 (0.52-1.04) mg/dL Est GFR (CKD-EPI)AfAm >90 (>60 ml/min/1.73 sqM) Est GFR (CKD-EPI)NonAf >90 (>60 ml/min/1.73 sqM) Glucose 108 H (74-99) mg/dL Calcium 9.3 (8.4-10.2) mg/dL Total Bilirubin 0.5 (0.2-1.3) mg/dL AST 23 (14-36) U/L ALT 17 (4-34) U/L Alkaline Phosphatase 86 (38-126) U/L Total Protein 6.9 (6.3-8.2) g/dL Albumin 4.3 (3.5-5.0) g/dL Amylase 61 (30-110) U/L Lipase 193 (23-300) U/L Urine Color Light Yellow Urine Appearance Clear (Clear) Urine pH 5.5 (5.0-8.0) Ur Specific [place] 1.014 (1.001-1.035) Urine Protein Negative (Negative) Urine Glucose (UA) Negative (Negative) Urine Ketones Negative (Negative) Urine Blood Negative (Negative) Urine Nitrite Negative (Negative) Urine Bilirubin Negative (Negative) Urine Urobilinogen <2.0 (<2.0) mg/dL Ur Leukocyte Esterase Negative (Negative) Disposition Clinical Impression: Abdominal pain Disposition: HOME SELF-CARE Instructions (If sedation given, give patient instructions): Abdominal Pain (ED) Is patient prescribed a controlled substance at d/c from ED?: No Referrals: Nonstaff,Physician [Primary Care Provider] - 1-2 days Time of Disposition: 08:46
[2020-05-23 08:03] LABS: ALT 17 U/L (4-34); AST 23 U/L (14-36); African American GFR (CKD) >90 (>60 ml/min/1.73 sqM); Albumin 4.3 g/dL (3.5-5.0); Alkaline Phosphatase 86 U/L (38-126); Amylase 61 U/L (30-110); Anion Gap 9 mmol/L; Blood Urea Nitrogen 17 mg/dL (7-17); Calcium 9.3 mg/dL (8.4-10.2); Carbon Dioxide 25 mmol/L (22-30); Chloride 106 mmol/L (98-107); Glucose 108 mg/dL (74-99); Lipase 193 U/L (23-300); Non-African American GFR(CKD) >90 (>60 ml/min/1.73 sqM); Potassium 4.4 mmol/L (3.5-5.1); Sodium 140 mmol/L (137-145); Total Bilirubin 0.5 mg/dL (0.2-1.3); Total Protein 6.9 g/dL (6.3-8.2)
[2020-05-23 08:08] LABS: Appearance,Urine Clear (Clear); Bilirubin,Urine Negative (Negative); Blood,Urine Negative (Negative); Color,Urine Light Yellow; Glucose,Urine (UA) Negative (Negative); Ketones,Urine Negative (Negative); Leukocyte Esterase,Urine Negative (Negative); Nitrite,Urine Negative (Negative); PH, Urine 5.5 (5.0-8.0); Protein,Urine Negative (Negative); Specific Gravity,Urine 1.014 (1.001-1.035); Urobilinogen,Urine <2.0 mg/dL (<2.0)
[2020-05-23 08:31] LABS: Basophils % (A) 0 %; Eosinophils # (A) 0.1 k/uL (0-0.7); Eosinophils % (A) 2 %; HCT 41.2 % (34.0-46.0); HGB 13.4 gm/dL (11.4-16.0); Lymphocytes # (A) 0.9 k/uL (1.0-4.8); Lymphocytes % (A) 23 %; MCH 26.3 pg (25.0-35.0); MCHC 32.6 g/dL (31.0-37.0); MCV 80.7 fL (80.0-100.0); Mean Platelet Volume 7.1; Monocytes # (A) 0.2 k/uL (0-1.0); Monocytes % (A) 5 %; Neutrophils # (A) 2.5 k/uL (1.3-7.7); Neutrophils % (A) 67 %; Platelet Count 172 k/uL (150-450); RBC 5.11 m/uL (3.80-5.40); RDW 13.6 % (11.5-15.5); WBC 3.7 k/uL (3.8-10.6)
--- NOTE | 2020-05-23 08:46 | XR ---
KUB HISTORY: Abdominal pain and vomiting KUB submitted on 2 images and correlated to prior CT scan dated 05/08/2020 Lung bases are clear. Surgical clips are present in the right upper quadrant. No evident bowel obstru ction or pneumoperitoneum. Bone mineralization is maintained. Retained fecal debris present throughou t the distribution of the colon. There is a calcification in the left hemipelvis corresponding to pro bable phleboliths seen on prior CT. IMPRESSION: Nonobstructive bowel gas pattern.
[2020-05-23 09:32] VITALS: BP 138/74; PULSE 78
== END 2020-05-23 09:10 | disposition home or self-care (01) ==
LOC: EC 07:07
DX: R10.13 Epigastric pain (principal); F32.9 Major depressive disorder, single episode, unspecified; I10 Essential (primary) hypertension; Z86.711 Personal history of pulmonary embolism; Z86.718 Personal history of other venous thrombosis and embolism
CPT/HCPCS: 36415; 93005; 80053; 82150; 83690; 85025; 81003; 74018; 99284; 96374; 96375; 96361; J1790